=== PATIENT | male | born 1995 | race Asian ===

== ENCOUNTER 2024-06-01 08:46 | Outpatient (AMB) | payer OTHER, SELFPAY ==
--- NOTE | 2024-06-01 08:54 | MHC.PC.OV ---
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 He has a hx of htn and obstructive sleep apnea and states that he was dx with htn 2018. He states that he never followed up on the sleep apnea but was treated with lisinopril for htn and that was effective. He has been off of meds now for 3-4 years. He does complain today of increased urination x 3 months. He states when it started he was worried that he had diabetes or a uti. He states that he went to urgent care to make sure no signs of a uti or dm. He denies any polydipsia. He denies any dysuria, abnormal penile discharge, fever, chills, abdominal pain or flank pain. He states he does have a family history of diabetes and that is his main concern. He states that he does eat a lot of carbohydrates and more than he probably should. He does not have to urinate during the night. He does not drink much caffeine. He states that he does not drink carbonated beverages. Blood pressure today in the office is 136/88. He has a cuff at home but has not been checking it. He still snores at night. 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 1. Little interest or pleasure in doing things: not at all 2. Feeling down, depressed, or hopeless: not at all 3. Trouble falling or staying asleep, or sleeping too much: not at all 4. Feeling tired or having little energy: several days 5. Poor appetite or overeating: not at all 6. Feeling bad about yourself - or that you are a failure or have let yourself or your family down: not at all 7. Trouble concentrating on things, such as reading the newspaper or watching television: not at all 8. Moving or speaking so slowly that other people could have noticed. Or the opposite - being so fidgety or restless that you have been moving around a lot more than usual: not at all 9. Thoughts that you would be better off or of hurting yourself in some way: not at all Total score: 1 Depression Screening Interpretation: Negative Depression Screening Done: Yes 68379 - PHQ-9 Billing: Yes Source: Developed by Drs. Donn Purdy, Kristina Alonso, Rebel Burrell and colleagues, with an educational yulissa from [employer]. Thrive Questionnaire Date Thrive assessed: 06/01/24 I am a: Patient What is your living situation today?: I have a steady place to live Within the past 12 months, did the food you bought not last and you didn't have the money to get more?: Never true Within the past 12 months, did you worry whether your food would run out before you got money to buy more?: Never true Do you have trouble paying for medicines?: No Do you have trouble getting transportation to medical appointments?: No Do you have trouble paying your heating and electricity bill?: No Do you have trouble taking care of your child, family member or friend?: No Do you have trouble with day-to-day activities such as bathing, preparing meals, shopping, managing finances, etc.?: No Are you currently unemployed and looking for a job?: No Are you interested in more education?: No Please select the resources that you would like help with: None Currently or been in a relationship where the following occur: No concerns reported THRIVE Score: 0 AUDIT C Alcohol Use Questionnaire (AUDIT-C) 1. How often do you have a drink containing alcohol?: Monthly or less 2. How many drinks containing alcohol do you have on a typical day when you are drinking?: 1 or 2 3. How often do you have six or more drinks on one occasion?: Never Total Score: 1 Score Reviewed/Action Taken: Yes JESUS ALBERTO-7 AMB Questionnaire JESUS ALBERTO-7 Date JESUS ALBERTO - 7 assessed: 06/01/24 Feeling nervous, anxious, or on edge: 1 = Several days Not being able to stop or control worryin = Several days Worrying too much about different things: 0 = Not at all Trouble relaxin = Several days Being so restless that it is hard to sit still: 0 = Not at all Becoming easily annoyed or irritable: 0 = Not at all Feeling afraid as if something awful might happen: 0 = Not at all Total JESUS ALBERTO-7 score (0-4 normal; 5-9 mild; 10-14 moderate; 15-21 severe): 3 Source: Developed by Drs. Donn Purdy, Kristina Alonso, Rebel Burrell and colleagues, with an educational yulissa from [employer]. JESUS ALBERTO-7 Assessment Billing JESUS ALBERTO-7 Assessment Tool: JESUS ALBERTO-7 Assessment 32940 Physical exam (Primary Care) Vital Signs: Last Vital Signs Temp 98.4 F 06/01/24 09:08 Pulse 81 06/01/24 09:08 Resp 16 06/01/24 09:08 BP 136/88 06/01/24 09:08 Pulse Ox 96 06/01/24 09:08 Oxygen Delivery Method Room Air 06/01/24 09:08 BMI result Body Mass Index 35.7 Tobacco/Smoking Status: Tobacco use Status Tobacco use date assessed 06/01/24 06/01/24 08:57 Patient Tobacco Use Status Never used Tobacco 06/01/24 09:11 e-Cigarette/Vaping Use Never Used 06/01/24 09:11 PHQ-9: PHQ-9 Score PHQ-9: Total score 1 06/01/24 09:42 Depression Screening Interpretation: Negative Thrive Assessment: Date of Thrive Assessment Date Thrive assessed 06/01/24 06/01/24 09:15 Currently or been in a relationship where the following occur: No concerns reported Const Orientation/consciousness: patient oriented x3 HENMA Ears: hearing grossly normal bilaterally Neck Thyroid: Thyroid normal Lymphatic: no lymphadenopathy noted Resp Auscultation: clear to auscultation bilaterally Cardio Rate: regular rate Rhythm: regular rhythm Heart sounds: S1 normal heart sound present and S2 normal heart sound present GI Inspection: Yes normal to inspection Palpation (GI): Soft to palpation and Other GI palpation findings present (nontender, no cva tenderness) Auscultation: normoactive bowel sounds Rectal Exam - Male: Yes deferred Skin General skin exam: no rashes or lesions noted Neuro General: patient oriented x3, gait normal and no focal motor deficits Assessment and Plan Assessment & Plan (1) Polyuria: Code(s): R35.89 - Other polyuria Plan: Labs ordered today. Urine ordered. We will follow up pending test results. (2) HTN (hypertension): Code(s): I10 - Essential (primary) hypertension Qualifiers: Hypertension type: unspecified Qualified Code(s): I10 - Essential (primary) hypertension Plan: We will recheck blood pressure at follow up in 1 month. Blood pressure is borderline today. He is going to keep track of this at home as he does have a cuff. We did discuss that untreated sleep apnea can also cause hypertension. (3) Sleep apnea: Code(s): G47.30 - Sleep apnea, unspecified Qualifiers: Sleep apnea type: obstructive Qualified Code(s): G47.33 - Obstructive sleep apnea (adult) (pediatric) Plan: Unsure of when his sleep study was. He states that it was around the time of 2018. Reordered this today. Referral to sleep Medicine. I have strongly encouraged weight loss. (4) No immunization history record: Code(s): Z78.9 - Other specified health status Plan: titers ordered Orders: Orders Complete Blood Count Auto Diff Today G47.30 - Sleep apnea, unspecified, I10 - Essential (primary) hypertension, R35.89 - Other polyuria Hemoglobin A1c Today G47.30 - Sleep apnea, unspecified, I10 - Essential (primary) hypertension, R35.89 - Other polyuria UA CC w/rflx Micro + Cult Today G47.30 - Sleep apnea, unspecified, I10 - Essential (primary) hypertension, R35.89 - Other polyuria RT home sleep study Today G47.30 - Sleep apnea, unspecified, I10 - Essential (primary) hypertension Hepatitis B Surface Antigen Today Z78.9 - Other specified health status Comprehensive [place]. Panel Fast Today G47.30 - Sleep apnea, unspecified, I10 - Essential (primary) hypertension, R35.89 - Other polyuria PSA, Ultra Sensitive Today G47.30 - Sleep apnea, unspecified, I10 - Essential (primary) hypertension, R06.09 - Other forms of dyspnea, R35.89 - Other polyuria TSH reflex Free T4 Today G47.30 - Sleep apnea, unspecified, I10 - Essential (primary) hypertension, R35.89 - Other polyuria Lipid Panel Today I10 - Essential (primary) hypertension MMR IgG Measles Mumps Rubella Today Z28.39 - Other underimmunization status, Z78.9 - Other specified health status Referrals Sleep Medicine Referral G47.33 - Obstructive sleep apnea (adult) (pediatric) Coding Level of Care Code New Pt Level 4 (88050) Complex EM visit Add On G2211 Diagnoses Polyuria R35.89 Hypertension, unspecified type I10 Hypertension type: unspecified Obstructive sleep apnea syndrome G47.33 Sleep apnea type: obstructive No immunization history record Z78.9 Additional Codes JESUS ALBERTO-7 Assessment Billing - JESUS ALBERTO-7 Assessment Tool: JESUS ALBERTO-7 Assessment 33216 ([id number])
[2024-06-01 09:08] VITALS: BP 136/88; PULSE 81; RESP 16; TEMP 36.9; O2SAT 96; BMI 35.7
== END 2024-06-01 09:57 | disposition home or self-care (01) ==
PROVIDERS: PCP Physician Assistant; Visit Provider Physician Assistant
DX: R35.89 Other polyuria (principal); I10 Essential (primary) hypertension; G47.33 Obstructive sleep apnea (adult) (pediatric); Z78.9 Other specified health status
CPT/HCPCS: 99204; G2211

== ENCOUNTER 2024-06-06 10:12 | Outpatient (REF) | payer OTHER, SELFPAY ==
[2024-06-06 10:30] LABS: MANUAL DIFF FLAG NO
[2024-06-06 11:36] LABS: Basophils Absolute Auto 0.1 X10*3/uL (0.0-0.2); Basophils Percent Auto 0.7 % (0-2); Eosinophils Absolute Auto 0.3 X10*3/uL (0.0-0.4); Eosinophils Percent Auto 2.8 % (0-4); Hematocrit 49.5 % (42.0-52.0); Hemoglobin 16.4 g/dl (14.0-18.0); Imm Gran Abs Auto 0.05 X10*3/uL (0.00-0.03); Imm Gran Pct Auto 0.6 % (0.0-0.4); Lymphocytes Absolute Auto 2.8 X10*3/uL (1.2-4.9); Lymphocytes Percent Auto 31.9 % (20-40); Mean Corpuscular HGB Conc 33.1 g/dl (31.0-36.0); Mean Corpuscular Volume 84.6 fL (80.0-98.0); Mean Platelet Volume 11.9 fL (9.4-12.4); Monocytes Absolute Auto 0.5 X10*3/uL (0.1-1.2); Monocytes Percent Auto 5.7 % (2-11); Neutrophils Absolute Auto 5.2 x10*3/uL (2.0-8.3); Neutrophils Percent Auto 58.3 % (45-73); Platelet Count 197 X10*3/uL (160-400); Red Blood Count 5.85 X10*6/uL (4.60-5.80); Red Cell Distribution Width 13.4 % (11.0-16.0); White Blood Count 8.9 X10*3/uL (4.8-10.8)
[2024-06-06 11:44] LABS: Estimated Average Glucose 120 mg/dL; Hemoglobin A1c % 5.8 % (<6.0)
[2024-06-06 12:20] LABS: Hepatitis B Surface Antigen Negative (Negative)
[2024-06-06 12:32] LABS: Alanine Aminotransferase 60 U/L (0-40); Albumin Level 4.9 g/dL (3.5-5.0); Alkaline Phosphatase 78 U/L (39-117); Anion Gap 16 (12-20); Aspartate Amino Transferase 32 U/L (5-37); Bilirubin Total 0.7 mg/dL (0.0-1.0); Blood Urea Nitrogen 11 mg/dL (9-16); Carbon Dioxide 23 mmol/L (22-29); Chloride 105 mmol/L (96-108); Cholesterol 169 mg/dL (<200); Estimated Glomerular Filt Rate > 60; Glucose Fasting 101 mg/dL (60-99); HDL Cholesterol 43 mg/dL (>40); LDL Cholesterol Calculated 96 mg/dL (<100); Potassium 3.9 mmol/L (3.3-5.1); Sodium 140 mmol/L (135-145); Total Protein 8.3 g/dL (6.5-8.0); Triglycerides 151 mg/dL (<150)
[2024-06-06 12:38] LABS: TSH reflex Free T4 0.92 uIU/mL (0.32-4.0)
[2024-06-06 13:21] LABS: Appearance Urine Clear; Color Urine Yellow; Glucose Urine UA Negative (Negative); Leukocyte Esterase Urine Negative (Negative); Nitrite Urine Negative (Negative); UMIC TRIGGER UACC YES; Urine Blood Negative (Negative); Urine Ketones Negative (Negative); Urine Protein 30 (1+) mg/dL (Neg-Trace)
[2024-06-06 13:29] LABS: Bacteria Urine None Seen (None Seen); Hyaline Casts Urine 0-2 /LPF (0-2); RBC Urine 0-2 /HPF (0-2); Squamous Epithelial Cell Urine 0-2 /HPF (0-2); WBC Urine 0-5 /HPF (0-5)
[2024-06-07 09:23] LABS: Rubella IgG Antibody 5.99 Index
[2024-06-12 17:54] LABS: PSA, Ultra Sensitive 0.58 ng/mL
== END 2024-06-06 10:13 | disposition home or self-care (01) ==
LOC: HO.LAB 10:12
PROVIDERS: PCP Physician Assistant; Visit Provider Physician Assistant
DX: R35.89 Other polyuria (principal); I10 Essential (primary) hypertension; G47.30 Sleep apnea, unspecified; Z28.39 Other underimmunization status; Z78.9 Other specified health status; R06.09 Other forms of dyspnea; Z12.5 Encounter for screening for malignant neoplasm of prostate; Z13.1 Encounter for screening for diabetes mellitus
CPT/HCPCS: 36415; 80053; 80061; 81001; 81003; 83036; 84153; 84443; 85025; 86735; 86762; 86765; 87340

== ENCOUNTER 2024-07-11 09:49 | Outpatient (REF) | payer OTHER, SELFPAY ==
[2024-07-11 10:42] LABS: MANUAL DIFF FLAG NO
[2024-07-11 11:13] LABS: Basophils Percent Auto 0.4 % (0-2); Eosinophils Absolute Auto 0.2 X10*3/uL (0.0-0.4); Hematocrit 48.5 % (42.0-52.0); Imm Gran Abs Auto 0.06 X10*3/uL (0.00-0.03); Imm Gran Pct Auto 0.7 % (0.0-0.4); Lymphocytes Absolute Auto 2.8 X10*3/uL (1.2-4.9); Lymphocytes Percent Auto 33.9 % (20-40); Mean Corpuscular Hemoglobin 28.1 pg (27.0-33.0); Mean Corpuscular Volume 85.2 fL (80.0-98.0); Mean Platelet Volume 11.4 fL (9.4-12.4); Monocytes Absolute Auto 0.5 X10*3/uL (0.1-1.2); Monocytes Percent Auto 5.8 % (2-11); Neutrophils Absolute Auto 4.7 x10*3/uL (2.0-8.3); Neutrophils Percent Auto 57.2 % (45-73); Platelet Count 314 X10*3/uL (160-400); Red Blood Count 5.69 X10*6/uL (4.60-5.80); Red Cell Distribution Width 13.1 % (11.0-16.0); White Blood Count 8.2 X10*3/uL (4.8-10.8)
[2024-07-11 11:27] LABS: Appearance Urine Clear; Color Urine Yellow; Glucose Urine UA Negative (Negative); Leukocyte Esterase Urine Negative (Negative); Nitrite Urine Negative (Negative); PH 6.5 (5.0-9.0); Urine Blood Negative (Negative); Urine Ketones Negative (Negative); Urine Protein Negative (Neg-Trace)
[2024-07-11 11:39] LABS: Alanine Aminotransferase 55 U/L (0-40); Albumin Level 4.8 g/dL (3.5-5.0); Alkaline Phosphatase 84 U/L (39-117); Aspartate Amino Transferase 27 U/L (5-37); Bilirubin Direct 0.2 mg/dL (0.0-0.5); Bilirubin Total 0.7 mg/dL (0.0-1.0); Gamma Glutamyl Transpeptidase 72 U/L (11-51); Total Protein 7.9 g/dL (6.5-8.0)
== END 2024-07-11 09:50 | disposition home or self-care (01) ==
LOC: HO.LAB 09:49
PROVIDERS: PCP Physician Assistant; Visit Provider Physician Assistant
DX: R79.89 Other specified abnormal findings of blood chemistry (principal); R73.03 Prediabetes; R35.89 Other polyuria; I10 Essential (primary) hypertension; G47.30 Sleep apnea, unspecified
CPT/HCPCS: 36415; 80076; 81003; 82977; 85025

== ENCOUNTER 2024-07-14 08:24 | Outpatient (AMB) | payer OTHER, SELFPAY ==
--- NOTE | 2024-07-14 08:28 | A.OFFPC_ITS ---
Vital Signs 07/14/24 08:29 Height 6 ft 0.48 in Weight 272 lb 2 oz BMI 36.4 BP 124/88 Blood Pressure Location Lt brachial Position Sitting Respiration 16 Pulse 90 Pulse Source Pulse Oximeter Pulse Oximetry (%) 96 Oxygen Delivery Method Room Air Intake Visit Reasons: bp check Intake Note: Follow up htn. Student Ministry Pastor Required: No Allergies Penicillins Allergy (Unknown, Verified 07/14/24 08:28) Unknown Medication List - Last Reconciled 07/14/24 by Zainab Reddy PA-C No Known Home Meds Tobacco use date assessed: 06/01/24 Dental Screening Dental Screen Date: 06/01/24 HPI bp check HPI Details Patient is a 28-year-old male with a significant past medical history of elevated blood pressure readings, prediabetes, elevated LFTs presenting today for a follow up. He was seen recently to establish care was noted to have an elevated blood pressure reading. He had had this in the past but had not been seen in quite some time. At that visit I also ordered him a sleep study and a referral to sleep Medicine as he had a history of sleep apnea but never got a CPAP machine. His sleep study is booked 07/19. He did get labs which did show slightly elevated LFTs and does endorse a diet high in fats and processed foods. States that his family eats a lot of processed foods because it is just easier to cook. His grandparents like to [place] a lot of food as well. Since our last visit he has not really been working on many diet changes. He states he stopped eating cereal in the morning and switch to oatmeal but other than that has not really made any changes. We did review that his last labs also came back with his A1c at 5.8. Does report that he eats a lot of carbohydrates and pastries. He does not think he wants to see a electromyographic technician. 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 Donn Purdy, Kristina Alnoso, Rebel Burrell and colleagues, with an educational yulissa from [employer]. Physical exam (Primary Care) Vital Signs: Last Vital Signs Pulse 90 07/14/24 08:29 Resp 16 07/14/24 08:29 BP 124/88 07/14/24 08:29 Pulse Ox 96 07/14/24 08:29 Oxygen Delivery Method Room Air 07/14/24 08:29 BMI result Body Mass Index 36.4 Tobacco/Smoking Status: Tobacco use Status Tobacco use date assessed 06/01/24 07/14/24 08:32 Patient Tobacco Use Status Never used Tobacco 07/14/24 08:32 e-Cigarette/Vaping Use Never Used 07/14/24 08:32 Thrive Assessment: Date of Thrive Assessment Date Thrive assessed 06/01/24 07/14/24 08:32 Const Orientation/consciousness: patient oriented x3 HENMT Ears: hearing grossly normal bilaterally Neck Thyroid: Thyroid normal Lymphatic: no lymphadenopathy noted Resp Auscultation: clear to auscultation bilaterally Cardio Rate: regular rate Rhythm: regular rhythm Heart sounds: S1 normal heart sound present and S2 normal heart sound present GI Inspection: Yes normal to inspection Palpation (GI): Soft to palpation and Other GI palpation findings present (nontender, no cva tenderness) Auscultation: normoactive bowel sounds Rectal Exam - Male: Yes deferred Skin General skin exam: no rashes or lesions noted Neuro General: patient oriented x3, gait normal and no focal motor deficits Results Reviewed Results Reviewed: Laboratory Tests 06/06/24 07/11/24 10:29 10:41 WBC 8.2 RBC 5.69 Hgb 16.0 Hct 48.5 Plt Count 314 D Total Bilirubin 0.7 Direct Bilirubin 0.2 GGT 72 H AST 27 ALT 55 H Alkaline Phosphatase 84 Total Protein 7.9 Albumin 4.8 Cholesterol 169 PSA Ultra-Sensitive 0.58 TSH 0.92 Assessment and Plan Assessment & Plan (1) Elevated LFTs: Code(s): R79.89 - Other specified abnormal findings of blood chemistry Plan: We discussed a low-fat diet. Ultrasound was ordered. We will recheck labs in a few months. (2) Prediabetes: Code(s): R73.03 - Prediabetes Plan: As above. Advised to reduce carbohydrate and sugar intake. I have encouraged exercise. Offered referral to electromyographic technician but he declines. (3) Prehypertension: Code(s): R03.0 - Elevated blood-pressure reading, without diagnosis of hypertension Plan: He will monitor blood pressures at home and return in a few months for a follow up. He will bring his cuff in to that appointment to check. Coding Level of Care Code Est Pt Level 4 (87712) Complex EM visit Add On G2211 Diagnoses Elevated LFTs R79.89 Prediabetes R73.03 Prehypertension R03.0
[2024-07-14 08:29] VITALS: BP 124/88; PULSE 90; RESP 16; O2SAT 96; BMI 36.4
== END 2024-07-14 09:00 | disposition home or self-care (01) ==
PROVIDERS: PCP Physician Assistant; Visit Provider Physician Assistant
DX: R79.89 Other specified abnormal findings of blood chemistry (principal); R73.03 Prediabetes; R03.0 Elevated blood-pressure reading, without diagnosis of hypertension
CPT/HCPCS: 99214; G2211

== ENCOUNTER 2024-07-18 10:28 | Outpatient (REF) | payer OTHER, SELFPAY ==
--- NOTE | ~2024-07-18 | US_ITS ---
EXAMINATION: US ABDOMEN COMPLETE CLINICAL INFORMATION: Abnormal results of liver function studies. COMPARISON: None available. TECHNIQUE: Real-time imaging of the abdominal viscera. FINDINGS: PANCREAS: Normal. ABDOMINAL AORTA: The proximal, mid, and distal segments are normal in caliber. INFERIOR VENA CAVA: Visualized portions are normal. LIVER: Hepatomegaly, 19.5 cm. Increased hepatic parenchymal heterogeneity and echogenicity could be associated with hepatocellular disease/hepatic steatosis and substantially limits visualization. Correlation with liver function tests and clinical exam recommended to determine further management. GALLBLADDER: Normal. The gallbladder is physiologically distended without evidence of stones, sludge, polyps, wall thickening or pericholecystic fluid. COMMON BILE DUCT: Poorly visualized, imaged portion possibly measuring 0.4 cm in diameter. RIGHT KIDNEY: No hydronephrosis. No renal calculi. Limited visualization. The kidney measures 12.9 cm in maximum dimension. LEFT KIDNEY: No hydronephrosis. No renal calculi. Limited visualization. The kidney measures 12.9 cm in maximum dimension. SPLEEN: Normal. The spleen measures 11.8 cm in maximum dimension. FREE FLUID: None. US/US abdomen complete IMPRESSION: Hepatomegaly, 19.5 cm. Increased hepatic parenchymal heterogeneity and echogenicity could be associated with hepatocellular disease/hepatic steatosis and substantially limits visualization. Correlation with liver function tests and clinical exam recommended to determine further management. Electronically signed by: Casie Gill MD 08/03/2024 01:17 PM EDT
== END 2024-07-18 10:29 | disposition home or self-care (01) ==
LOC: HO.US 10:28
PROVIDERS: PCP Physician Assistant; Visit Provider Physician Assistant
DX: R94.5 Abnormal results of liver function studies (principal)
CPT/HCPCS: 76700

== ENCOUNTER → 2024-07-19 08:00 | Outpatient (REF) | payer OTHER, SELFPAY | LOC: HO.SL 08:00 | PROVIDERS: PCP Physician Assistant; Visit Provider Physician Assistant | DX: G47.30 Sleep apnea, unspecified (principal); I10 Essential (primary) hypertension | CPT/HCPCS: 95806 ==

== ENCOUNTER → 2024-07-20 08:21 | Outpatient (BNV) | payer OTHER, SELFPAY | PROVIDERS: PCP Physician Assistant; Visit Provider Internal Medicine | DX: G47.33 Obstructive sleep apnea (adult) (pediatric) (principal) | CPT/HCPCS: 95806 ==

== ENCOUNTER 2024-10-19 08:19 | Outpatient (AMB) | payer OTHER, SELFPAY ==
--- NOTE | 2024-10-19 08:30 | A.OFFPC_ITS ---
Vital Signs 10/19/24 08:31 Height 6 ft 0.48 in Weight 280 lb BMI 37.5 BP 124/86 Blood Pressure Location Lt brachial Position Sitting Pulse 81 Pulse Source Pulse Oximeter Pulse Oximetry (%) 96 Oxygen Delivery Method Room Air Intake Visit Reasons: bp check Intake Note: Blood pressure follow up . Allergies Penicillins Allergy (Unknown, Verified 10/19/24 08:30) Unknown Medication List - Last Reconciled 10/19/24 by Zainab Reddy PA-C No Known Home Meds Tobacco use date assessed: 06/01/24 Dental Screening Dental Screen Date: 06/01/24 HPI bp check HPI Details Patient is a 28-year-old male with a significant past medical history of elevated blood pressure readings, prediabetes, elevated LFTs, obstructive sleep apnea presenting today for a follow up. Pulm: Seeing sleep medicine in Nov for GOMEZ. He was seen recently to establish care was noted to have an elevated blood pressure reading therefore sleep study was ordered. He does have sleep apnea. We did discuss the benefits of weight loss and he states that he knows he needs to work a little bit more on diet. GI: He did get labs which did show slightly elevated LFTs and does endorse a diet high in fats and processed foods. States that his family eats a lot of processed foods because it is just easier to cook. He is trying to make some dietary changes. Endo: his last A1c at 5.8. No polyuria or polydipsia. Does report that he eats a lot of carbohydrates and pastries. 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 Derm: He does report a raised, hyperpigmented lesion on his right medial eyelid that has been there for quite some time and seems like it is maybe grown in size. He would like to see Dermatology. He also suffers from hyperhidrosis and states that he would like to see them to see about treating this as he has tried [id number] medications without improvement. He states his palms get very sweaty.. 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 1. Little interest or pleasure in doing things: not at all 2. Feeling down, depressed, or hopeless: not at all 3. Trouble falling or staying asleep, or sleeping too much: not at all 5. Poor appetite or overeating: not at all 7. Trouble concentrating on things, such as reading the newspaper or watching television: not at all 8. Moving or speaking so slowly that other people could have noticed. Or the opposite - being so fidgety or restless that you have been moving around a lot more than usual: not at all 9. Thoughts that you would be better off or of hurting yourself in some way: not at all Source: Developed by Drs. Donn Purdy, Kristina Alonso, Rebel Burrell and colleagues, with an educational yulissa from [employer]. Thrive Questionnaire Date Thrive assessed: 10/16/24 I am a: Patient What is your living situation today?: I have a steady place to live Within the past 12 months, did the food you bought not last and you didn't have the money to get more?: Never true Within the past 12 months, did you worry whether your food would run out before you got money to buy more?: Never true Do you have trouble paying for medicines?: No Do you have trouble getting transportation to medical appointments?: No Do you have trouble paying your heating and electricity bill?: No Do you have trouble taking care of your child, family member or friend?: I choose not to answer this question Do you have trouble with day-to-day activities such as bathing, preparing meals, shopping, managing finances, etc.?: No Are you currently unemployed and looking for a job?: No Are you interested in more education?: Yes Please select the resources that you would like help with: None Currently or been in a relationship where the following occur: No concerns reported THRIVE Score: 0 AUDIT C Alcohol Use Questionnaire (AUDIT-C) 1. How often do you have a drink containing alcohol?: Monthly or less 2. How many drinks containing alcohol do you have on a typical day when you are drinking?: 1 or 2 3. How often do you have six or more drinks on one occasion?: Never Total Score: 1 JESUS ALBERTO-7 AMB Questionnaire JESUS ALBERTO-7 Date JESUS ALBERTO - 7 assessed: 10/19/24 Feeling nervous, anxious, or on edge: 1 = Several days Not being able to stop or control worryin = Not at all Worrying too much about different things: 0 = Not at all Trouble relaxin = Not at all Being so restless that it is hard to sit still: 0 = Not at all Becoming easily annoyed or irritable: 0 = Not at all Feeling afraid as if something awful might happen: 0 = Not at all Total JESUS ALBERTO-7 score (0-4 normal; 5-9 mild; 10-14 moderate; 15-21 severe): 1 Source: Developed by Drs. Donn Purdy, Kristina Alonso, Rebel Burrell and colleagues, with an educational yulissa from [employer]. JESUS ALBERTO-7 Assessment Billing JESUS ALBERTO-7 Assessment Tool: JESUS ALBERTO-7 Assessment 17157 Physical exam (Primary Care) Vital Signs: Last Vital Signs Pulse 81 10/19/24 08:31 BP 124/86 10/19/24 08:31 Pulse Ox 96 10/19/24 08:31 Oxygen Delivery Method Room Air 10/19/24 08:31 BMI result Body Mass Index 37.5 Tobacco/Smoking Status: Tobacco use Status Tobacco use date assessed 06/01/24 10/19/24 08:35 Patient Tobacco Use Status Never used Tobacco 10/19/24 08:35 e-Cigarette/Vaping Use Never Used 10/19/24 08:35 Thrive Assessment: Date of Thrive Assessment Date Thrive assessed 10/16/24 10/19/24 08:35 Currently or been in a relationship where the following occur: No concerns reported Const Orientation/consciousness: patient oriented x3 HENMT Ears: hearing grossly normal bilaterally Neck Thyroid: Thyroid normal Lymphatic: no lymphadenopathy noted Resp Auscultation: clear to auscultation bilaterally Cardio Rate: regular rate Rhythm: regular rhythm Heart sounds: S1 normal heart sound present and S2 normal heart sound present GI Inspection: Yes normal to inspection Palpation (GI): Soft to palpation and Other GI palpation findings present (nontender, no cva tenderness) Auscultation: normoactive bowel sounds Rectal Exam - Male: Yes deferred Skin Other: There is a raised, hyperpigmented, 3 mm x 3 mm lesion noted on the right medial upper eyelid Neuro General: patient oriented x3, gait normal and no focal motor deficits Results Reviewed Results Reviewed: IMPRESSION: Hepatomegaly, 19.5 cm. Increased hepatic parenchymal heterogeneity and echogenicity could be associated with hepatocellular disease/hepatic steatosis and substantially limits visualization. Correlation with liver function tests and clinical exam recommended to determine further management. Laboratory Tests 06/06/24 07/11/24 10:29 10:41 Sodium 140 Potassium 3.9 Chloride 105 Carbon Dioxide 23 Anion Gap 16 Creatinine 0.80 Estimated GFR > 60 Hemoglobin A1c % 5.8 Calcium 10.0 GGT 72 H AST 27 ALT 55 H Alkaline Phosphatase 84 Total Protein 7.9 Triglycerides 151 H LDL Cholesterol, Calc 96 HDL Cholesterol 43 PSA Ultra-Sensitive 0.58 TSH 0.92 Coding Level of Care Code Est Pt Level 4 (22499) Complex EM visit Add On G2211 Diagnoses Elevated LFTs R79.89 Prediabetes R73.03 Prehypertension R03.0 Additional Codes JESUS ALBERTO-7 Assessment Billing - JESUS ALBERTO-7 Assessment Tool: JESUS ALBERTO-7 Assessment 52470 ([id number]) Assessment & Plan Assessment & Plan (1) Elevated LFTs: Code(s): R79.89 - Other specified abnormal findings of blood chemistry Category: Medical Plan: We reviewed the labs and ultrasound of the liver. He will be seeing GI in November. (2) Prediabetes: Code(s): R73.03 - Prediabetes Category: Medical Plan: We will monitor the A1c. Discussed the importance of cutting back on carbohy drates and sugar. (3) Prehypertension: Code(s): R03.0 - Elevated blood-pressure reading, without diagnosis of hypertension Category: Medical Plan: We will continue to monitor. We will follow up after he sees sleep medicine to be reassessed. Plan Referral to derm today. Orders: Orders Hemoglobin A1c Today R03.0 - Elevated blood-pressure reading, without diagnosis of hypertension, R73.03 - Prediabetes, R79.89 - Other specified abnormal findings of blood chemistry Referrals Dermatology Referral L98.9 - Disorder of the skin and subcutaneous tissue, unspecified, R61 - Generalized hyperhidrosis
[2024-10-19 08:31] VITALS: BP 124/86; PULSE 81; O2SAT 96; BMI 37.5
== END 2024-10-19 08:55 | disposition home or self-care (01) ==
PROVIDERS: PCP Physician Assistant; Visit Provider Physician Assistant
DX: R79.89 Other specified abnormal findings of blood chemistry (principal); R73.03 Prediabetes; R03.0 Elevated blood-pressure reading, without diagnosis of hypertension

== ENCOUNTER → 2024-10-19 08:19 | Outpatient (BNVA) | payer OTHER, SELFPAY | PROVIDERS: PCP Physician Assistant; Visit Provider Physician Assistant | DX: R79.89 Other specified abnormal findings of blood chemistry (principal); R73.03 Prediabetes; R03.0 Elevated blood-pressure reading, without diagnosis of hypertension; L98.9 Disorder of the skin and subcutaneous tissue, unspecified; R61 Generalized hyperhidrosis | CPT/HCPCS: 96127 ==

== ENCOUNTER 2024-10-19 09:03 | Outpatient (REF) | payer OTHER, SELFPAY ==
[2024-10-19 11:47] LABS: Estimated Average Glucose 131 mg/dL; Hemoglobin A1C 174.6788 umol/L; Hemoglobin A1c % 6.2 % (<6.0)
== END 2024-10-19 09:04 | disposition home or self-care (01) ==
LOC: HO.WFDLDS 09:03
PROVIDERS: Visit Provider Physician Assistant
DX: R73.03 Prediabetes (principal); R03.0 Elevated blood-pressure reading, without diagnosis of hypertension; R79.89 Other specified abnormal findings of blood chemistry
CPT/HCPCS: 36415; 83036

== ENCOUNTER 2024-12-13 08:32 | Outpatient (AMB) | payer OTHER, SELFPAY ==
--- NOTE | 2024-12-13 08:40 | A.OFFVIS_ITS ---
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 HST 07/2024 Severe GOMEZ DORIS 52.4 / OAI 47.6 / Nocturnal Hypoxemia O2 desaturation to 88% for 13min. Start APAP - on 6-20cm H20 His PCP sent him for a sleep evaluation based on constant daily fatigue. 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 He denies grinding his teeth at night, and is sluggish to wake up, it take him about 1-2 hours to wake up. He starts sleeping on his side then ends up in supine position. He denies memory issues, forgetfulness, he does multi-task and notices he is easily distracted. He denies anxiety, depression, or mood fluctuations. He denies any parasomnias, sleep talking/ walking, and abnormal movements at night. BP is 140/100, he used to be on Lisinopril however discontinued since he was able to control his BP with diet and exercise. BMI 37 he is trying to lose weight. 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 Current occupational exposures/hazards: No Cognitive needs: No Hearing needs: No Vision needs: Yes (glasses) Review of Systems Const All systems reviewed & are unremarkable except as noted in HPI and below Physical Exam Vital Signs: Last Vital Signs Pulse 93 12/13/24 08:44 BP 140/100 H 12/13/24 08:44 Pulse Ox 96 12/13/24 08:44 Oxygen Delivery Method Room Air 12/13/24 08:44 BMI result Body Mass Index 37.1 Const General: cooperative, comfortable and no acute distress Nutritional Appearance: average body habitus and overweight (BMI is 37) Orientation/consciousness: patient oriented x3 HEENT Face and sinus: Yes normal facial exam and Yes face symmetric Throat: Yes other ([place] score of 3) Eyes Pupils: Equal, round and reactive pupils present Neck Neck: Yes full ROM and Yes supple Resp Effort & Inspection: normal respiratory effort and able to speak in complete sentences Neuro General: patient oriented x3 and moves all extremities Cranial nerves: Yes CN's II-XII intact bilaterally, Yes Facial sensation intact/muscles of mastication intact, Yes Equal, round and reactive pupils present, Yes Normal accommodation reflex present, Yes Bilaterally intact EOM present, Yes Nystagmus not present, Yes Normal facial strength present, Yes Midline tongue present, Yes Ability to bilaterally rotate head present and Yes Ability to bilaterally elevate shoulders present Cognition (Neuro): normal cognition Gait exam (Neuro): Normal gait present Motor exam (neuro): 5/5 motor strength present throughout, Pronator motor function not present, no tremor noted and Normal motor muscle tone present throughout Deep tendon reflexes (DTR's): Right triceps reflex intensity grade: 2+, Left triceps reflex intensity grade: 2+, Rt Biceps (C5, C6): 2+, Left biceps reflex intensity grade: 2+, Right brachioradialis reflex intensity grade: 2+, Left brachioradialis reflex intensity grade: 2+, Right patellar reflex intensity grade: 2+ and Left patellar reflex intensity grade: 2+ Results Reviewed Results Reviewed: Labs: CBC/ CMP / TSH normal HgA1c 6.2 BP/ HTN GGT 72/ ALT H Triglycerides 151 Assessment & Plan Assessment & Plan (1) Fatigue due to sleep pattern disturbance: Code(s): R53.83 - Other fatigue; G47.9 - Sleep disorder, unspecified Category: Medical Plan GOMEZ very severe: Start CPAP / Auto Pap on [id number], will titrate for hypoxemia once stabilized on CPAP Patient Education: Sleep Hygiene, regular sleep time, dark and cool environment enhances sleep. Red light in the bedroom maybe helpful. No devices in bed. Limit fluids 2-4 hours prior to bed. HTN #1 Modifiable RF for Cardiovascular events. Migraines will monitor for intensity/frequency and f/u. Fatigue: Labs: B12/ Folate/ MMA/ Vit D 3 mos f/u Orders: Orders Vitamin D 25-OH Total Today G47.9 - Sleep disorder, unspecified, R53.83 - Other fatigue Vitamin B12 and Folate Today G47.9 - Sleep disorder, unspecified, R53.83 - Other fatigue Methylmalonic Acid Today G47.9 - Sleep disorder, unspecified, R53.83 - Other fatigue Homocysteine Today G47.9 - Sleep disorder, unspecified, R53.83 - Other fatigue Coding Level of Care Code New Pt Level 4 (30518) Diagnoses Fatigue due to sleep pattern disturbance R53.83; G47.9 Time Spent (min) 30 Sleep Questionnaire Difficulty falling asleep: No Difficulty staying asleep?: No Number of arousals: 1 Snoring: Yes Witnessed apneas: Yes Gasping arousals: No Nocturia: No GERD: No Vivid dreams: No Acting out dreams: No Abnormal behavior in sleep: No Abnormal movements in sleep: Yes (Right foot pins and needles, seconds) Morning headaches: Yes (Occipital haedache pressure ) Excessive daytime sleepiness: Yes Daytime naps: Yes (1-2 x week 15min to 30min) Restless legs: Yes (shakes his legs ) Hallucinations: No Sleep paralysis: No Drop attacks: No Sleep Study: Yes CPAP: No
[2024-12-13 08:44] VITALS: BP 140/100; PULSE 93; O2SAT 96; BMI 37.1
== END 2024-12-13 09:17 | disposition home or self-care (01) ==
PROVIDERS: PCP Physician Assistant; Visit Provider Physician Assistant Medical
DX: R53.83 Other fatigue (principal); G47.9 Sleep disorder, unspecified
CPT/HCPCS: 99204

== ENCOUNTER 2024-12-19 08:30 | Outpatient (REF) | payer OTHER, SELFPAY ==
[2024-12-19 09:49] LABS: Estimated Average Glucose 134 mg/dL; Hemoglobin A1C 177.4262 umol/L; Hemoglobin A1c % 6.3 % (<6.0); Total Hemoglobin (HGBA1C) 3959.6119 umol/L
[2024-12-19 10:12] LABS: Alanine Aminotransferase 87 U/L (0-40); Albumin Level 4.8 g/dL (3.5-5.0); Alkaline Phosphatase 91 U/L (39-117); Aspartate Amino Transferase 46 U/L (5-37); Bilirubin Direct 0.2 mg/dL (0.0-0.5); Bilirubin Total 0.4 mg/dL (0.0-1.0); Cholesterol 162 mg/dL (<200); HDL Cholesterol 35 mg/dL (>40); LDL Cholesterol Calculated 108 mg/dL (<100); Triglycerides 96 mg/dL (<150)
[2024-12-19 10:25] LABS: HBS Num1 3.39 mIU/mL (0-7.99); HBc Num1 0.06 S/CO (0.00-0.79); HBsAGNum1 0.39 S/CO (0.00-0.99); Hepatitis A Antibody IgM 0.14 Index (0-0.79); Hepatitis B Core Antibody Nonreactive (Nonreactive); Hepatitis B Surface Antigen Negative (Negative); ~HepC Num1 0.06 S/CO (0.00-0.79); ~Hepatitis A Antibody IgM Nonreactive (Nonreactive); ~Hepatitis B Surface Antibody NONREACTIVE (Nonreactive); ~Hepatitis C Antibody Nonreactive (Nonreactive)
[2024-12-19 10:32] LABS: Vitamin D 25-OH Total 12.9 ng/mL (>30)
[2024-12-19 10:38] LABS: Folate 5.9 ng/mL (> or = 4.0); Vitamin B12 572 pg/mL (200-900)
[2024-12-20 18:33] LABS: Homocysteine 8.6 umol/L (<11.4)
[2024-12-23 05:13] LABS: Methylmalonic Acid 228 nmol/L (55-335)
[2024-12-26 17:00] LABS: FIB-ALT 63 U/L (9-46); FIB-Alpha-2-Macroglobulin 151 mg/dL (106-279); FIB-Apolipoprotein A1 127 mg/dL (94-176); FIB-GGT 75 U/L (3-70); FIB-Haptoglobin 198 mg/dL (43-212); FIB-Total Bilirubin 0.4 mg/dL (0.2-1.2); Liver Fibrosis Stage F0; Nec Inflam Act Grade A1; Nec Inflam Act Score 0.31; Reference ID 5315421
== END 2024-12-19 08:31 | disposition home or self-care (01) ==
LOC: HO.LAB 08:30
PROVIDERS: Physician Assistant Medical; PCP Physician Assistant; Visit Provider Nurse Practitioner Family
DX: K76.0 Fatty (change of) liver, not elsewhere classified (principal); R53.83 Other fatigue; G47.9 Sleep disorder, unspecified; R74.01 Elevation of levels of liver transaminase levels; R79.89 Other specified abnormal findings of blood chemistry; Z83.3 Family history of diabetes mellitus; I25.10 Atherosclerotic heart disease of native coronary artery without angina pectoris
CPT/HCPCS: 36415; 80061; 80076; 81596; 82306; 82607; 82746; 83036; 83090; 83921; 86704; 86706; 86709; 86803; 87340

== ENCOUNTER 2024-12-19 08:30 | Outpatient (AMB) | payer OTHER, SELFPAY ==
[2024-12-19 08:32] VITALS: BP 152/96; PULSE 96; O2SAT 96; BMI 38.0
--- NOTE | 2024-12-19 08:32 | A.OFFVIS_ITS ---
Vital Signs 12/19/24 08:32 Height 6 ft Weight 280 lb 6.848 oz BMI 38.0 BP 152/96 H Blood Pressure Location Rt brachial Position Sitting Pulse 96 Pulse Source Pulse Oximeter Pulse Oximetry (%) 96 Oxygen Delivery Method Room Air Intake Visit Reasons: Abnormal find. Blood Chemistry, Fatty Liver Intake Note: ESTABLISHED PATIENT Reason; Abn labs. Most recently drawn within last 2 mos. Changes/concerns? No significant GI concerns per pt. Medical Front Desk Specialist Required: No Allergies Penicillins Allergy (Unknown, Verified 12/19/24 08:33) Unknown HPI HPI Abnormal find. Blood Chemistry, Fatty Liver: Details: 29-year-old male with past medical history of sleep apnea, hypertension is here today for initial consultation. Patient was sent by his PCP. Elevated liver enzymes and hepatomegaly seen on ultrasound. Patient denies drinking alcohol on daily basis maybe couple times a month. Denies any family history of liver disease. Admits to gaining with in the past few years. 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 Patient reports that he does eat food that is fried. Mostly home cooked. Patient reports that she has grandparents usually cook. Patient denies any abdominal pain or discomfort. 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 Current occupational exposures/hazards: No Cognitive needs: No Hearing needs: No Vision needs: Yes (glasses) Review of Systems Const Denies weight gain and Denies weight loss ENT Reports no additional complaints, Denies dysphagia and Denies odynophagia Card Reports no additional complaints Resp Reports no additional complaints GI Denies abdominal pain, Denies belching, Denies melena, Denies bloating, Denies change in bowel habits, Denies dysphagia, Denies excessive flatus, Denies dyspepsia, Denies heartburn, Denies diarrhea, Denies loose stools, Denies nausea, Denies odynophagia and Denies vomiting Reports no additional complaints Musc Reports no additional complaints Neuro Reports no additional complaints Psych Reports no additional complaints Endo Reports no additional complaints Physical Exam Vital Signs: BMI result Body Mass Index 38.0 Const General: healthy appearing and no acute distress Nutritional Appearance: obese Orientation/consciousness: patient oriented x3 Resp Effort & Inspection: normal respiratory effort, able to speak in complete sentences, no tracheal deviation and symmetric chest movement Auscultation: clear to auscultation bilaterally Cardio Rate: regular rate GI Inspection: Yes normal to inspection, No distended and Yes obesity Palpation (GI): Soft to palpation, not firm, nontender and No hepatosplenomegaly present Auscultation: normal bowel sounds General: Yes no CVA tenderness Back/Spine/Pelvis Back: no CVA tenderness Skin General skin exam: elasticity normal, turgor normal and dry skin Neuro General: patient oriented x3 Psych Appearance: grossly normal Mental Status: mental status grossly normal Results Reviewed Results Reviewed: ABDOMINAL ULTRASOUND FINDINGS: PANCREAS: Normal. ABDOMINAL AORTA: The proximal, mid, and distal segments are normal in caliber. INFERIOR VENA CAVA: Visualized portions are normal. LIVER: Hepatomegaly, 19.5 cm. Increased hepatic parenchymal heterogeneity and echogenicity could be associated with hepatocellular disease/hepatic steatosis and substantially limits visualization. Correlation with liver function tests and clinical exam recommended to determine further management. GALLBLADDER: Normal. The gallbladder is physiologically distended without evidence of stones, sludge, polyps, wall thickening or pericholecystic fluid. COMMON BILE DUCT: Poorly visualized, imaged portion possibly measuring 0.4 cm in diameter. RIGHT KIDNEY: No hydronephrosis. No renal calculi. Limited visualization. The kidney measures 12.9 cm in maximum dimension. LEFT KIDNEY: No hydronephrosis. No renal calculi. Limited visualization. The kidney measures 12.9 cm in maximum dimension. SPLEEN: Normal. The spleen measures 11.8 cm in maximum dimension. FREE FLUID: None. US/US abdomen complete IMPRESSION: Hepatomegaly, 19.5 cm. Increased hepatic parenchymal heterogeneity and echogenicity could be associated with hepatocellular disease/hepatic steatosis and substantially limits visualization. Correlation with liver function tests and clinical exam recommended to determine further management. Laboratory Tests 06/06/24 07/11/24 10:29 10:41 ALT 60 H 55 H Assessment & Plan Assessment & Plan (1) Elevated LFTs: Code(s): R79.89 - Other specified abnormal findings of blood chemistry Category: Medical (2) Hepatomegaly: Code(s): R16.0 - Hepatomegaly, not elsewhere classified Category: Medical Plan Discussed with patient the importance of losing weight, diet and exercise. Low- fat, low-salt, low carb and high-protein diet. Will repeat liver enzymes, check A1c. History of diabetes in his family and last A1c 6.2 % in September. Ultrasound of the liver with elastography. Follow-up in 6 months. Patient will call us if he will have any GI concerning symptoms. He is agreeable to this plan and verbalizes understanding of instructions. He was given the opportunity to ask questions and all questions answered. Thank you for allowing me to participate in his care Orders: Orders Liver Fibrosis Pnl Today K76.0 - Fatty (change of) liver, not elsewhere classified Liver Panel Today R74.01 - Elevation of levels of liver transaminase levels Hemoglobin A1c Today Z83.3 - Family history of diabetes mellitus Hepatitis A,B,C Profile Today R79.89 - Other specified abnormal findings of blood chemistry US abdomen hayden w elastography Today K76.0 - Fatty (change of) liver, not elsewhere classified Lipid Panel Today I25.10 - Atherosclerotic heart disease of [place] coronary artery without angina pectoris Coding Level of Care Code New Pt Level 3 (35612) Diagnoses Elevated LFTs R79.89 Hepatomegaly R16.0 Time Spent (min) 40 Comment 30 minutes spent with patient and additional 10 minutes spent
== END 2024-12-19 11:17 | disposition home or self-care (01) ==
PROVIDERS: PCP Physician Assistant; Visit Provider Nurse Practitioner Family
DX: R79.89 Other specified abnormal findings of blood chemistry (principal); R16.0 Hepatomegaly, not elsewhere classified
CPT/HCPCS: 99203

== ENCOUNTER 2025-01-19 08:14 | Outpatient (REF) | payer OTHER, SELFPAY ==
--- NOTE | ~2025-01-19 | US_ITS ---
EXAMINATION: US ABDOMEN LIMITED WITH LIVER ELASTOGRAPHY CLINICAL INFORMATION: Fatty change of liver, not elsewhere specified. COMPARISON: 07/18/2024. No prior elastography. TECHNIQUE: Real-time imaging of the abdominal viscera. Noninvasive ultrasound liver fibrosis assessment is performed using Vahid ElastPQ point quantification shear wave elastography (pSWE) with a 5 MHz transducer. Multiple elastography samples are obtained. FINDINGS: PANCREAS: The visualized pancreatic head and body are normal in appearance. The remainder of the pancreas is obscured from visualization by the overlying bowel gas. LIVER: Liver is mildly enlarged with diffusely increased and coarsened echogenicity. This likely represents a mix of fatty infiltration with associated hepatocellular disease. There is normal hepatic contour. There is focal fatty sparing abutting the gallbladder fossa. There is a minimally complex probable cyst measuring 8 x 7 x 8 mm in the left hepatic lobe with good through transmission and no color Doppler flow. There is no intra or extrahepatic biliary dilatation. The right lobe measures 17.8 cm in length. The left lobe measures 12.6 cm in length. Portal flow is hepatopedal. Shear wave liver elastography median stiffness is 1.76 m/s (reference: normal median stiffness is 1.3 m/s or less). IQR/median stiffness to assess sampling precision is 0.07 (reference: good quality data set is IQR/median stiffness of 0.15 or less). GALLBLADDER: The gallbladder is physiologically distended without evidence of stones, sludge, polyps, wall thickening or pericholecystic fluid. Negative sonographic Rosado's sign. COMMON BILE DUCT: Normal in caliber measuring 0.3 cm in diameter. RIGHT KIDNEY: No hydronephrosis. No renal calculi or focal parenchymal lesions. The kidney measures 11.7 cm in maximum dimension. FREE FLUID: None. US/US abdomen hayden w elastography IMPRESSION: 1. Mild hepatomegaly with diffusely coarsened and increased hepatic echotexture/echogenicity, findings most likely representing a mixture of fatty infiltration and underlying hepatocellular disease. There is a mildly complex appearing 8 mm cyst in the left hepatic lobe. This does not appear suspicious. 2. Liver elastography: Measurements are suggestive of compensated advanced chronic liver disease but need further test for confirmation. This is a quality data set. 3. Normal gallbladder, bile ducts, and right kidney. REFERENCE: Society of Radiologists in Ultrasound Liver Stiffness Thresholds (2020): LIVER STIFFNESS THRESHOLDS: *Liver Stiffness equal or less than 1.3 m/s: High probability of being normal. *Liver Stiffness less than 1.7 m/s: In the absence of other known clinical signs, rules out compensated advanced chronic liver disease. *Liver Stiffness 1.7-2.1 m/s: Suggestive of compensated advanced chronic liver disease but need further test for confirmation. *Liver Stiffness over 2.1 m/s: Rules in compensated advanced chronic liver disease. *Liver Stiffness over 2.4 m/s: Suggestive of clinically significant portal hypertension. QUALITY OF DATA SET: *IQR/Median value equal or less than 0.15 implies a quality data set. *IQR/Median value over 0.15 implies a poor quality data set. SIGNIFICANT CHANGE FROM PRIOR EXAM: Significant change if liver stiffness measurement is 10% or greater from prior exam. OTHER CONSIDERATIONS: The stage of liver fibrosis may be overestimated in the setting of acute hepatitis, liver inflammation, elevated liver function tests, hepatic vascular congestion, obstructive cholestasis, non-fasting state, and infiltrative diseases such as amyloidosis and lymphoma. In some patients with NAFLD, the liver stiffness thresholds for compensated advanced chronic liver disease may be lower. In causes other than viral hepatitis and NAFLD, liver stiffness thresholds are not well established. Electronically signed by: Wiley Hodges MD 01/19/2025 09:33 AM [facility] [place]
== END 2025-01-19 08:15 | disposition home or self-care (01) ==
LOC: HO.US 08:14
PROVIDERS: PCP Physician Assistant; Visit Provider Nurse Practitioner Family
DX: K76.0 Fatty (change of) liver, not elsewhere classified (principal)
CPT/HCPCS: 76705; 76981

== ENCOUNTER → 2025-01-19 08:16 | Outpatient (BNV) | payer OTHER, SELFPAY | PROVIDERS: PCP Physician Assistant; Visit Provider Radiology Diagnostic Radiology | DX: K76.0 Fatty (change of) liver, not elsewhere classified (principal) | CPT/HCPCS: 76705 ==

== ENCOUNTER 2025-02-22 08:26 | Outpatient (AMB) | payer OTHER, SELFPAY ==
--- NOTE | 2025-02-22 08:37 | MHC.PC.OV ---
Vital Signs 02/22/25 08:41 Height 6 ft 0.48 in Weight 283 lb 2 oz BMI 37.9 BP 128/84 Blood Pressure Location Rt brachial Position Sitting Respiration 14 Pulse 86 Pulse Source Pulse Oximeter Pulse Oximetry (%) 96 Oxygen Delivery Method Room Air Intake Visit Reasons: Follow Up bp Intake Note: Follow up. Had a sleep study, and now on CPAP. International Account Manager Required: No Allergies Penicillins Allergy (Unknown, Verified 02/22/25 08:40) Unknown Medication List - Last Reconciled 02/22/25 by Zainab Reddy PA-C cholecalciferol (vitamin D3) 50 mcg PO DAILY 90 days Tobacco use date assessed: 06/01/24 Dental Screening Dental Screen Date: 06/01/24 HPI Follow Up bp HPI Details Patient is a 29-year-old male with a significant past medical history of elevated blood pressure readings, prediabetes, elevated LFTs, obstructive sleep apnea presenting today for a follow up. Pulm: Recently seen and treated for sleep apnea CV: Blood pressure today in the office is 128/84. It was recently higher prior to treating his sleep apnea. However, he has yet lost any weight GI: He did get labs which did show elevated LFTs and does endorse a diet high in fats and processed foods. States that his family eats a lot of processed foods because it is just easier to cook. He is trying to make some dietary changes. he did follow with GI. He did have a liver ultrasound which was consistent with hepatomegaly, coarse appearance of the liver and a complex liver cyst which did not appear to be concerning. He did review this with GI in the recommendation is weight loss and controlling his blood sugars. Endo: He is a prediabetic and his A1c has increased from 5.8-6.3.. No polyuria or polydipsia. Does report that he eats a lot of carbohydrates and pastries. He was offered a media production support manager initially however states today that he thinks he would be ready to see a media production support manager. His diet in the morning is oatmeal, ramen noodles for lunch and then states that he eats a heavier dinner. He does not eat much protein. He is not very physically active. 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 1. Little interest or pleasure in doing things: not at all 2. Feeling down, depressed, or hopeless: not at all 3. Trouble falling or staying asleep, or sleeping too much: not at all 4. Feeling tired or having little energy: not at all 5. Poor appetite or overeating: not at all 6. Feeling bad about yourself - or that you are a failure or have let yourself or your family down: not at all 7. Trouble concentrating on things, such as reading the newspaper or watching television: not at all 8. Moving or speaking so slowly that other people could have noticed. Or the opposite - being so fidgety or restless that you have been moving around a lot more than usual: not at all 9. Thoughts that you would be better off or of hurting yourself in some way: not at all Total score: 0 Depression Screening Interpretation: Negative Depression Screening Done: Yes 07105 - PHQ-9 Billing: Yes Source: Developed by Drs. Donn Purdy, Kristina Alonso, Rebel Burrell and colleagues, with an educational yulissa from [employer]. Thrive Questionnaire Date Thrive assessed: 02/18/25 I am a: Patient What is your living situation today?: I have a steady place to live Within the past 12 months, did the food you bought not last and you didn't have the money to get more?: Never true Within the past 12 months, did you worry whether your food would run out before you got money to buy more?: Never true Do you have trouble paying for medicines?: No Do you have trouble getting transportation to medical appointments?: No Do you have trouble paying your heating and electricity bill?: No Do you have trouble taking care of your child, family member or friend?: No Do you have trouble with day-to-day activities such as bathing, preparing meals, shopping, managing finances, etc.?: No Are you currently unemployed and looking for a job?: No Are you interested in more education?: Yes Please select the resources that you would like help with: None Currently or been in a relationship where the following occur: No concerns reported THRIVE Score: 0 AUDIT C Alcohol Use Questionnaire (AUDIT-C) 1. How often do you have a drink containing alcohol?: 2-4 times a month 2. How many drinks containing alcohol do you have on a typical day when you are drinking?: 1 or 2 3. How often do you have six or more drinks on one occasion?: Never Total Score: 2 Score Reviewed/Action Taken: Yes JESUS ALBERTO-7 AMB Questionnaire JESUS ALBERTO-7 Date JESUS ALBERTO - 7 assessed: 10/19/24 Feeling nervous, anxious, or on edge: 0 = Not at all Not being able to stop or control worryin = Several days Worrying too much about different things: 1 = Several days Trouble relaxin = Not at all Being so restless that it is hard to sit still: 0 = Not at all Becoming easily annoyed or irritable: 0 = Not at all Feeling afraid as if something awful might happen: 0 = Not at all Total JESUS ALBERTO-7 score (0-4 normal; 5-9 mild; 10-14 moderate; 15-21 severe): 2 Source: Developed by Drs. Donn Purdy, Kristina Alonso, Rebel Burrell and colleagues, with an educational yulissa from [employer]. JESUS ALBERTO-7 Assessment Billing JESUS ALBERTO-7 Assessment Tool: JESUS ALBERTO-7 Assessment 71838 Physical exam (Primary Care) Vital Signs: Last Vital Signs Pulse 86 02/22/25 08:41 Resp 14 02/22/25 08:41 BP 128/84 02/22/25 08:41 Pulse Ox 96 02/22/25 08:41 Oxygen Delivery Method Room Air 02/22/25 08:41 BMI result Body Mass Index 37.9 Tobacco/Smoking Status: Tobacco use Status Tobacco use date assessed 06/01/24 02/22/25 08:39 Patient Tobacco Use Status Never used Tobacco 02/22/25 08:39 e-Cigarette/Vaping Use Never Used 02/22/25 08:39 PHQ-9: PHQ-9 Score PHQ-9: Total score 0 02/22/25 08:47 Depression Screening Interpretation: Negative Thrive Assessment: Date of Thrive Assessment Date Thrive assessed 02/18/25 02/22/25 08:39 Currently or been in a relationship where the following occur: No concerns reported Const Orientation/consciousness: patient oriented x3 HENMT Ears: hearing grossly normal bilaterally Neck Thyroid: Thyroid normal Lymphatic: no lymphadenopathy noted Resp Auscultation: clear to auscultation bilaterally Cardio Rate: regular rate Rhythm: regular rhythm Heart sounds: S1 normal heart sound present and S2 normal heart sound present GI Inspection: Yes normal to inspection Palpation (GI): Soft to palpation and Other GI palpation findings present (nontender, no cva tenderness) Auscultation: normoactive bowel sounds Rectal Exam - Male: Yes deferred Skin General skin exam: no rashes or lesions noted Neuro General: patient oriented x3, gait normal and no focal motor deficits Results Reviewed Results Reviewed: Laboratory Tests 07/11/24 12/19/24 10:41 09:26 WBC 8.2 RBC 5.69 Hgb 16.0 Hct 48.5 Plt Count 314 D Estimat Average Glucose 134 Hemoglobin A1c % 6.3 H Total Bilirubin 0.4 Direct Bilirubin 0.2 AST 46 H ALT 87 H Alkaline Phosphatase 91 Liver GGT 75 H Liver Total Bilirubin 0.4 Liver Apolipoprotein A1 127 Liver Fibrosis ALT 63 H Liver c-7-Ddalinpoemmoi 151 Liver Haptoglobin 198 Liver Fibrosis Score 0.10 Total Protein 8.0 Albumin 4.8 Triglycerides 96 Cholesterol 162 LDL Cholesterol, Calc 108 H HDL Cholesterol 35 L Vitamin B12 572 Methylmalonic Acid 228 25-OH Vitamin D Total 12.9 L Folate 5.9 Homocysteine 8.6 Hepatitis A IgM Ab Nonreactive Hep Bs Antigen Negative Hep Bs Antibody NONREACTIVE Hep B Core Total Ab Nonreactive Hepatitis C Ab (EIA) Nonreactive US/US abdomen hayden w elastography IMPRESSION: 1. Mild hepatomegaly with diffusely coarsened and increased hepatic echotexture/echogenicity, findings most likely representing a mixture of fatty infiltration and underlying hepatocellular disease. There is a mildly complex appearing 8 mm cyst in the left hepatic lobe. This does not appear suspicious. Coding Level of Care Code Est Pt Level 5 (94240) Complex EM visit Add On G2211 Diagnoses Prediabetes R73.03 Elevated LFTs R79.89 Obstructive sleep apnea syndrome G47.33 Sleep apnea type: obstructive Hypertension, unspecified type I10 Hypertension type: unspecified Additional Codes JESUS ALBERTO-7 Assessment Billing - JESUS ALBERTO-7 Assessment Tool: JESUS ALBERTO-7 Assessment 58575 ([id number]) PHQ-9 - 03725 - PHQ-9 Billing: Yes ([id number]) Assessment & Plan Assessment & Plan (1) Prediabetes: Code(s): R73.03 - Prediabetes Category: Medical Plan: We will recheck labs. Discussed starting metformin however he wants to hold off on this and wants to hold off on a GLP 1. I have referred him to a media production support manager. We discussed that his diet is high in carbohydrates and processed foods and that he needs to increase his protein rich foods, fruits, vegetables and increased physical activity. We spent 45 minutes in [id number] time today discussing diet, discussing how to read a nutrition label and portion sizes. We also discussed signs and symptoms of diabetes, different medications used to treat diabetes in the pathophysiology of type 2 diabetes. (2) Elevated LFTs: Code(s): R79.89 - Other specified abnormal findings of blood chemistry Category: Medical Plan: Reviewed notes from GI with patient and discussed the importance of reducing his carbohydrate and sugar intake. We also discussed that he needs to lower his A1c. (3) Sleep apnea: Code(s): G47.30 - Sleep apnea, unspecified Category: Medical Qualifiers: Sleep apnea type: obstructive Qualified Code(s): G47.33 - Obstructive sleep apnea (adult) (pediatric) Plan: Currently being treated and feels better. (4) HTN (hypertension): Code(s): I10 - Essential (primary) hypertension Category: Medical Qualifiers: Hypertension type: unspecified Qualified Code(s): I10 - Essential (primary) hypertension Plan: Better today but borderline. We will continue to monitor. Orders: Orders Complete Blood Count Auto Diff Today G47.33 - Obstructive sleep apnea (adult) (pediatric), I10 - Essential (primary) hypertension, R16.0 - Hepatomegaly, not elsewhere classified, R73.03 - Prediabetes, R79.89 - Other specified abnormal findings of blood chemistry TSH reflex Free T4 Today G47.33 - Obstructive sleep apnea (adult) (pediatric), I10 - Essential (primary) hypertension, R16.0 - Hepatomegaly, not elsewhere classified, R73.03 - Prediabetes, R79.89 - Other specified abnormal findings of blood chemistry Comprehensive [place]. Panel Fast Today G47.33 - Obstructive sleep apnea (adult) (pediatric), I10 - Essential (primary) hypertension, R16.0 - Hepatomegaly, not elsewhere classified, R73.03 - Prediabetes, R79.89 - Other specified abnormal findings of blood chemistry Hemoglobin A1c Today G47.33 - Obstructive sleep apnea (adult) (pediatric), I10 - Essential (primary) hypertension, R16.0 - Hepatomegaly, not elsewhere classified, R73.01 - Impaired fasting glucose, R73.03 - Prediabetes, R79.89 - Other specified abnormal findings of blood chemistry Lipid Panel Today G47.33 - Obstructive sleep apnea (adult) (pediatric), I10 - Essential (primary) hypertension, R16.0 - Hepatomegaly, not elsewhere classified, R73.03 - Prediabetes, R79.89 - Other specified abnormal findings of blood chemistry Referrals Tub Attendant Nutrition Referral G47.33 - Obstructive sleep apnea (adult) (pediatric), I10 - Essential (primary) hypertension, R73.03 - Prediabetes, R79.89 - Other specified abnormal findings of blood chemistry
[2025-02-22 08:41] VITALS: BP 128/84; PULSE 86; RESP 14; O2SAT 96; BMI 37.9
== END 2025-02-22 09:06 | disposition home or self-care (01) ==
LOC: HO.HMCFM 08:26
PROVIDERS: PCP Physician Assistant; Visit Provider Physician Assistant
DX: R73.03 Prediabetes (principal); R79.89 Other specified abnormal findings of blood chemistry; G47.33 Obstructive sleep apnea (adult) (pediatric); I10 Essential (primary) hypertension

== ENCOUNTER → 2025-02-22 08:26 | Outpatient (BNVA) | payer OTHER, SELFPAY | PROVIDERS: PCP Physician Assistant; Visit Provider Physician Assistant | DX: R73.03 Prediabetes (principal); R79.89 Other specified abnormal findings of blood chemistry; I10 Essential (primary) hypertension; G47.33 Obstructive sleep apnea (adult) (pediatric) | CPT/HCPCS: 96127 ==

== ENCOUNTER 2025-03-15 09:08 | Outpatient (AMB) | payer OTHER, SELFPAY ==
[2025-03-15 09:44] VITALS: BMI 37.3
--- NOTE | 2025-03-15 09:44 | A.OFFVIS_ITS ---
VS Expanded 03/15/25 09:44 03/28/25 12:10 Height 6 ft 1 in 6 ft 1 in Weight 282 lb 10.122 oz 283 lb BMI 37.3 37.3 Intake Visit Reasons: Prediabetes Allergies Penicillins Allergy (Unknown, Verified 03/20/25 09:11) Unknown Nutrition Presentation Details: Pt presents for MNT for PRE DM Pt has many questions regarding dietary modifications to cultural foods and questions regarding info read on the web BS Monitoring Most Recent Diabetes Results: Cholesterol 162 mg/dL (<200) 12/19/24 HDL Cholesterol 35 mg/dL (>40) L 12/19/24 Triglycerides 96 mg/dL (<150) 12/19/24 AST 46 U/L (5-37) H 12/19/24 ALT 87 U/L (0-40) H 12/19/24 Total Protein 8.0 g/dL (6.5-8.0) 12/19/24 Albumin 4.8 g/dL (3.5-5.0) 12/19/24 MBS-Ujprslh-Mh.Jeor Equation Height: 6 ft 1 in Weight: 283 lb Resting Metabolic Rate: 2308.50 Calculated Activity Level: Sedentary Calories Needed to Maintain Weight: 2770.20 Diagnosis Nutrition problem #1: excessive energy intake As related to (etiology) #1: diagnosis As evidenced by (sign/symptom) #1: knowledge deficit of diet PFSH Medical History Hepatomegaly Social History Housing: House Alcohol intake: current Comment: Socially Patient Tobacco Use Status: Never used Tobacco e-Cigarette/Vaping Use: Never Used Second Hand Smoke Exposure: Yes service: No 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 occupational status: employed 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 Current occupational exposures/hazards: No Cognitive needs: No Hearing needs: No Vision needs: Yes (glasses) Assessment & Plan Assessment & Plan (1) Prediabetes: Code(s): R73.03 - Prediabetes Category: Medical Plan: Wt: 129 Kg ( 03/17 ) Est kcal needs as per MSJ: 2800 (40% carb, 30% protein/fat) Est fluid needs as per 25-30 ml/d: 3900 Est prot per day as per 1 g/kg bw: 130 Recommend fiber intake : 8-10 g per day and gradually increase to 25-28 g per day for women and 35-38 g for men or as tolerated Recommend sodium intake per day : less than 2000 mg Educated patient on: ( R = reviewed V = verbalizes understanding N/R = needs review N/A = not applicable * Food sources of carbohydrate, adequate serving sizes and its role in various health conditions: R * Differences between complex carbohydrates a simple carbohydrates, role of fiber in diet: R V N/R * Lean protein sources of foods: R * Differences between types of fats and role in diet (mono on saturated fat fatty acids, saturated fatty acids, trans fats): R V N/R * Food sources of sodium in salt and healthy modifications for heart health in kidney health: R V R/V * Vitamins and minerals: R V N/R * Healthy plate method concept: R V * Physical activity: Benefits a precaution: R * Hypoglycemia protocol (rule of 15): R V N/R * Dietary prevention of Hyperglycemia: R Patient Instructions: Work on reducing sugars (beverages/pastries/sugars in general) Reduce total carb to 80 g per meal and 20-30 g carb per as snack Include fiber rich foods Coding Level of Care Code Nutr Indiv Intake (28523) Diagnoses Prediabetes R73.03 Time Spent (min) 30
[2025-03-28 12:10] VITALS: BMI 37.3
== END 2025-03-15 10:39 | disposition home or self-care (01) ==
LOC: HO.ENCR 09:08
PROVIDERS: PCP Physician Assistant; Visit Provider Dietitian, Registered
DX: R73.03 Prediabetes (principal)

== ENCOUNTER → 2025-03-15 09:08 | Outpatient (BNVA) | payer OTHER, SELFPAY | PROVIDERS: PCP Physician Assistant; Visit Provider Dietitian, Registered | DX: R73.03 Prediabetes (principal); Z71.3 Dietary counseling and surveillance | CPT/HCPCS: 97802 ==

== ENCOUNTER 2025-03-20 09:00 | Outpatient (AMB) | payer OTHER, SELFPAY ==
--- NOTE | 2025-03-20 09:08 | MHC.OFFVIS ---
Vital Signs 03/20/25 09:11 Height 6 ft 1 in Weight 281 lb BMI 37.1 BP 140/92 H Blood Pressure Location Rt brachial Position Sitting Pulse 96 Pulse Source Pulse Oximeter Pulse Oximetry (%) 97 Oxygen Delivery Method Room Air Intake Visit Reasons: 3 mnts f/u appt Intake Note: Patient presents follow up Sleep. Labs/Compliance in chart Allergies Penicillins Allergy (Unknown, Verified 03/20/25 09:11) Unknown HPI Comments Details: 29 year old male presents for sleep evaluation per PCP, Elenita Reddy. HST 07/2024 Severe GOMEZ DORIS 52.4 / OAI 47.6 / Nocturnal Hypoxemia O2 desaturation to 88% for 13min. Start APAP - on 6-20cm H20 His PCP sent him for a sleep evaluation based on constant daily fatigue. 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 He denies grinding his teeth at night, and is not so sluggish to wake up, but still needs a few minutes to get out of bed. He starts sleeping on his side then ends up in supine position. He denies memory issues, forgetfulness, he does multi-task and notices he is easily distracted. He denies depression, or mood fluctuations, but has mild anxiety. He denies any parasomnias, sleep talking/ walking, abnormal movements at night, and RLS. BP is elevated 140/92, he used to be on Lisinopril 5 years ago however discontinued since he was able to control his BP with lifestyle management along with diet and exercise. Will defer to PCP. BMI is elevated at 37 he is trying to lose weight. He has a familial genetic disposition with liver fibrois and complete work up shows Fibrosis at 0. He washes his mask daily, rinses hoses as needed, changes filters and water from machine. 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 Current occupational exposures/hazards: No Cognitive needs: No Hearing needs: No Vision needs: Yes (glasses) Physical Exam Vital Signs: Last Vital Signs Pulse 96 03/20/25 09:11 Pulse Ox 97 03/20/25 09:11 Oxygen Delivery Method Room Air 03/20/25 09:11 BMI result Body Mass Index 37.1 Const General: cooperative, comfortable and no acute distress Nutritional Appearance: average body habitus and overweight (BMI is 37) Orientation/consciousness: patient oriented x3 HEENT Face and sinus: Yes normal facial exam and Yes face symmetric Throat: Yes other ([place] score of 3) Eyes Pupils: Equal, round and reactive pupils present Neck Neck: Yes full ROM and Yes supple Resp Effort & Inspection: normal respiratory effort and able to speak in complete sentences Neuro General: patient oriented x3 and moves all extremities Cranial nerves: Yes CN's II-XII intact bilaterally, Yes Facial sensation intact/muscles of mastication intact, Yes Equal, round and reactive pupils present, Yes Normal accommodation reflex present, Yes Bilaterally intact EOM present, Yes Nystagmus not present, Yes Normal facial strength present, Yes Midline tongue present, Yes Ability to bilaterally rotate head present and Yes Ability to bilaterally elevate shoulders present Cognition (Neuro): normal cognition Gait exam (Neuro): Normal gait present Motor exam (neuro): 5/5 motor strength present throughout, Pronator motor function not present, no tremor noted and Normal motor muscle tone present throughout Deep tendon reflexes (DTR's): Right triceps reflex intensity grade: 2+, Left triceps reflex intensity grade: 2+, Rt Biceps (C5, C6): 2+, Left biceps reflex intensity grade: 2+, Right brachioradialis reflex intensity grade: 2+, Left brachioradialis reflex intensity grade: 2+, Right patellar reflex intensity grade: 2+ and Left patellar reflex intensity grade: 2+ Results Reviewed Results Reviewed: GOMEZ Compliance Report 12/14/2024- 03/13/2025 >4hours 54days and 60% avg use total days 3hrs 58min Press [id number] therapy at 13.5 - 19.4cmH20 Leaks /min 15.0 - Max 60.6cmH20 AHI 2.9 Assessment & Plan Assessment & Plan (1) Fatigue due to sleep pattern disturbance: Code(s): R53.83 - Other fatigue; G47.9 - Sleep disorder, unspecified Category: Medical (2) Low vitamin D level: Code(s): R79.89 - Other specified abnormal findings of blood chemistry Category: Medical (3) HTN (hypertension): Code(s): I10 - Essential (primary) hypertension Category: Medical Qualifiers: Hypertension type: unspecified Qualified Code(s): I10 - Essential (primary) hypertension Plan Fatigue due to sleep apnea continue cpap Low vit D levels continue taking Vitamin D daily HTN BP is 140/92, patient education provided today re: pathophysiology hypertension and comorbidities associated with HTN. Patient Instructions: Patient Education: Use CPAP therapy as directed accordingly for a minimum of 4-6 hours per night. Each sleep cycle is 90 min. N1, N2, N3 and REM, thus cycling through these 4 phases reaching REM allows the Hypothalamus signalling to the Pituitary gland to release GNRH, GHRH, TSH, CRH etc. for growth tissue repair, mood and immunity. If you experience any difficulties with your machine reach out to your cpap provider, and or [facility] for replacements, adjustments of masks, or pressure settings. Download the [employer] Trader leatha to monitor your own sleep cycle nightly. Write down your questions and lets discuss them. Wash the mask daily,replace hoses, change filters, fill your reservoir with distilled water as needed. Coding Level of Care Code Est Pt Level 4 (42726) Diagnoses Fatigue due to sleep pattern disturbance R53.83; G47.9 Low vitamin D level R79.89 Hypertension, unspecified type I10 Hypertension type: unspecified Time Spent (min) 30
[2025-03-20 09:11] VITALS: BP 140/92; PULSE 96; O2SAT 97; BMI 37.1
== END 2025-03-20 10:02 | disposition home or self-care (01) ==
LOC: HO.HSMS 09:00
PROVIDERS: PCP Physician Assistant; Visit Provider Physician Assistant Medical
DX: R53.83 Other fatigue (principal); G47.9 Sleep disorder, unspecified; R79.89 Other specified abnormal findings of blood chemistry; I10 Essential (primary) hypertension
CPT/HCPCS: 99214

== ENCOUNTER → 2025-03-20 09:00 | Outpatient (BNVA) | payer OTHER, SELFPAY | PROVIDERS: PCP Physician Assistant; Visit Provider Physician Assistant Medical ==

== ENCOUNTER 2025-04-24 10:12 | Outpatient (AMB) | payer OTHER, SELFPAY ==
[2025-04-24 10:14] VITALS: BMI 36.9
--- NOTE | 2025-04-24 10:14 | A.OFFVIS_ITS ---
VS Expanded 04/24/25 10:14 Height 6 ft 1 in Weight 279 lb 15.793 oz BMI 36.9 Intake Visit Reasons: Pre DM Allergies Penicillins Allergy (Unknown, Verified 03/20/25 09:11) Unknown Nutrition Presentation Details: Pt presents for MNT f/u for T2DM Pt reports gradually working n diet modifications food labels-reports understanding carbs/sugar/portions challenges: evening snacks Physical activity- contemplation stage BS Monitoring Most Recent Diabetes Results: Cholesterol 162 mg/dL (<200) 12/19/24 HDL Cholesterol 35 mg/dL (>40) L 12/19/24 Triglycerides 96 mg/dL (<150) 12/19/24 AST 46 U/L (5-37) H 12/19/24 ALT 87 U/L (0-40) H 12/19/24 Total Protein 8.0 g/dL (6.5-8.0) 12/19/24 Albumin 4.8 g/dL (3.5-5.0) 12/19/24 PFSH Medical History Hepatomegaly Social History Housing: House Alcohol intake: current Comment: Socially Patient Tobacco Use Status: Never used Tobacco e-Cigarette/Vaping Use: Never Used Second Hand Smoke Exposure: Yes service: No Current occupational status: employed 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 Current occupational exposures/hazards: No Cognitive needs: No Hearing needs: No Vision needs: Yes (glasses) Assessment & Plan Assessment & Plan (1) Prediabetes: Code(s): R73.03 - Prediabetes Category: Medical Plan: Wt: 129 Kg ( 03/17 ), 127 kg (05/17) Est kcal needs as per MSJ: 2800 (40% carb, 30% protein/fat) Est fluid needs as per 25-30 ml/d: 3900 Est prot per day as per 1 g/kg bw: 130 Recommend fiber intake : 8-10 g per day and gradually increase to 25-28 g per day for women and 35-38 g for men or as tolerated Recommend sodium intake per day : less than 2000 mg Educated patient on: ( R = reviewed V = verbalizes understanding N/R = needs review N/A = not applicable * Food sources of carbohydrate, adequate serving sizes and its role in various health conditions: R * Differences between complex carbohydrates a simple carbohydrates, role of fiber in diet: R * Lean protein sources of foods: R * Differences between types of fats and role in diet (mono on saturated fat fatty acids, saturated fatty acids, trans fats): R V N/R * Food sources of sodium in salt and healthy modifications for heart health in kidney health: R * Vitamins and minerals: R V N/R * Healthy plate method concept: R V * Physical activity: Benefits a precaution: R * Hypoglycemia protocol (rule of 15): R V N/R * Dietary prevention of Hyperglycemia: R Patient Instructions: WORK ON CHOOSING LOW SODIUM FOODS options see list of low sodium food choices choose a fruit/avocado in evening snack , working on reducing high salt/highly processed foods Coding Level of Care Code Nutr Indiv Subseq (33537) Diagnoses Prediabetes R73.03 Time Spent (min) 30
== END 2025-04-24 11:08 | disposition home or self-care (01) ==
LOC: HO.ENCR 10:14
PROVIDERS: PCP Physician Assistant; Visit Provider Dietitian, Registered
DX: R73.03 Prediabetes (principal)

== ENCOUNTER → 2025-04-24 10:12 | Outpatient (BNVA) | payer OTHER, SELFPAY | PROVIDERS: PCP Physician Assistant; Visit Provider Dietitian, Registered | DX: R73.03 Prediabetes (principal); Z71.3 Dietary counseling and surveillance | CPT/HCPCS: 97803 ==

== ENCOUNTER 2025-05-22 08:59 | Outpatient (REF) | payer OTHER, SELFPAY ==
[2025-05-22 09:17] LABS: MANUAL DIFF FLAG NO
[2025-05-22 09:54] LABS: Basophils Percent Auto 0.5 % (0-2); Eosinophils Absolute Auto 0.2 X10*3/uL (0.0-0.4); Eosinophils Percent Auto 2.6 % (0-4); Hematocrit 48.4 % (42.0-52.0); Hemoglobin 15.8 g/dl (14.0-18.0); Imm Gran Abs Auto 0.07 X10*3/uL (0.00-0.03); Imm Gran Pct Auto 0.8 % (0.0-0.4); Lymphocytes Absolute Auto 2.7 X10*3/uL (1.2-4.9); Lymphocytes Percent Auto 31.5 % (20-40); Mean Corpuscular HGB Conc 32.6 g/dl (31.0-36.0); Mean Corpuscular Hemoglobin 27.2 pg (27.0-33.0); Mean Corpuscular Volume 83.4 fL (80.0-98.0); Mean Platelet Volume 11.6 fL (9.4-12.4); Monocytes Absolute Auto 0.5 X10*3/uL (0.1-1.2); Monocytes Percent Auto 6.1 % (2-11); Neutrophils Percent Auto 58.5 % (45-73); Platelet Count 273 X10*3/uL (160-400); Red Cell Distribution Width 13.1 % (11.0-16.0); White Blood Count 8.5 X10*3/uL (4.8-10.8)
[2025-05-22 10:02] LABS: Estimated Average Glucose 140 mg/dL; Hemoglobin A1c % 6.5 % (<6.0)
[2025-05-22 10:43] LABS: HBS Num1 3.25 mIU/mL (0-7.99); ~HepC Num1 0.08 S/CO (0.00-0.79); ~Hepatitis B Surface Antibody NONREACTIVE (Nonreactive); ~Hepatitis C Antibody Nonreactive (Nonreactive)
[2025-05-22 10:57] LABS: Alanine Aminotransferase 88 U/L (0-40); Alkaline Phosphatase 97 U/L (39-117); Anion Gap 14 (12-20); Aspartate Amino Transferase 46 U/L (5-37); Bilirubin Direct 0.3 mg/dL (0.0-0.5); Bilirubin Total 0.7 mg/dL (0.0-1.0); Blood Urea Nitrogen 12 mg/dL (9-16); Calcium 9.4 mg/dL (8.4-10.2); Carbon Dioxide 24 mmol/L (22-29); Chloride 105 mmol/L (96-108); Cholesterol 175 mg/dL (<200); Estimated Glomerular Filt Rate > 60; Ferritin 241 ng/mL (20-250); Glucose Fasting 122 mg/dL (60-99); HDL Cholesterol 36 mg/dL (>40); LDL Cholesterol Calculated 103 mg/dL (<100); Potassium 3.8 mmol/L (3.3-5.1); Sodium 139 mmol/L (135-145); Total Protein 7.8 g/dL (6.5-8.0); Triglycerides 181 mg/dL (<150)
[2025-05-22 11:28] LABS: Gamma Glutamyl Transpeptidase 92 U/L (11-51)
== END 2025-05-22 09:00 | disposition home or self-care (01) ==
LOC: HO.LAB 08:59
PROVIDERS: PCP Physician Assistant; Visit Provider Physician Assistant
DX: R94.5 Abnormal results of liver function studies (principal); R73.01 Impaired fasting glucose; R16.0 Hepatomegaly, not elsewhere classified; R73.03 Prediabetes; R79.89 Other specified abnormal findings of blood chemistry; G47.33 Obstructive sleep apnea (adult) (pediatric); I10 Essential (primary) hypertension
CPT/HCPCS: 36415; 80053; 80061; 80076; 82248; 82728; 82977; 83036; 84443; 85025; 86706; 86803

== ENCOUNTER 2025-05-25 08:14 | Outpatient (AMB) | payer OTHER, SELFPAY ==
--- NOTE | 2025-05-25 08:25 | A.OFFPC_ITS ---
Vital Signs 05/25/25 08:27 05/25/25 08:34 Height 6 ft 1 in Weight 281 lb 4 oz BMI 37.1 BP 136/96 H 130/88 Blood Pressure Location Rt brachial Lt brachial Position Sitting Sitting Respiration 16 Pulse 80 Pulse Source Pulse Oximeter Temp 98.4 F Temp Source Oral Pulse Oximetry (%) 95 Oxygen Delivery Method Room Air Intake Visit Reasons: labs and med check Intake Note: Medication follow up. Lab results. Employee Relations Consultant Required: No Allergies Penicillins Allergy (Unknown, Verified 05/25/25 08:26) Unknown Medication List - Last Reconciled 05/25/25 by Zainab Reddy PA-C blood sugar diagnostic (FreeStyle Lite Strips) Use daily As directed to check blood glucose blood-glucose meter (FreeStyle Lite Meter kit) Use daily As directed to check blood sugars cholecalciferol (vitamin D3) 50 mcg PO DAILY 90 days lancets (FreeStyle Lancets) use daily as directed to check blood glucose lisinopril 10 mg PO DAILY Tobacco use date assessed: 05/25/25 Dental Screening Dental Screen Date: 05/25/25 Did you have a dental visit in the last 12 months?: No Did you have a dental problem in the last 6 months where you did not have access to dental care?: No Was dental information given to patient?: Patient has dentist (appts are booked far out) HPI labs and med check HPI Details Patient is a 29-year-old male with a significant past medical history of elevated blood pressure readings, prediabetes, elevated LFTs, obstructive sleep apnea presenting today for a follow up. Pulm: Recently seen and treated for sleep apnea CV: Blood pressure today in the office is 136/96. It was recently higher prior to treating his sleep apnea. However, he has yet lost any weight, does continue to gain weight. GI: He did get labs which did show elevated LFTs and does endorse a diet high in fats and processed foods. States that his family eats a lot of processed foods because it is just easier to cook. He is trying to make some dietary changes. he did follow with GI. He did have a liver ultrasound which was consistent with hepatomegaly, coarse appearance of the liver and a complex liver cyst which did not appear to be concerning. He did review this with GI in the recommendation is weight loss and controlling his blood sugars. Endo: He is a a newly diagnosed diabetic and his A1c has increased from 5.8- 6.5. It has increased despite him following with a classroom instructional aide. No polyuria or polydipsia. Does report that he eats a lot of carbohydrates and pastries. He was offered a classroom instructional aide initially however states today that he thinks he would be ready to see a classroom instructional aide. His diet in the morning is oatmeal, ramen noodles for lunch and then states that he eats a heavier dinner. He does not eat much protein. He is not very physically active. 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 Current occupational exposures/hazards: No Cognitive needs: No Hearing needs: No Vision needs: Yes (glasses) Questionnaire Thrive Questionnaire Date Thrive assessed: 02/18/25 I am a: Patient What is your living situation today?: I have a steady place to live Within the past 12 months, did the food you bought not last and you didn't have the money to get more?: Never true Within the past 12 months, did you worry whether your food would run out before you got money to buy more?: Never true Do you have trouble paying for medicines?: No Do you have trouble getting transportation to medical appointments?: No Do you have trouble paying your heating and electricity bill?: No Do you have trouble taking care of your child, family member or friend?: No Do you have trouble with day-to-day activities such as bathing, preparing meals, shopping, managing finances, etc.?: No Are you currently unemployed and looking for a job?: No Are you interested in more education?: Yes Please select the resources that you would like help with: None Currently or been in a relationship where the following occur: No concerns reported THRIVE Score: 0 AUDIT C Alcohol Use Questionnaire (AUDIT-C) 1. How often do you have a drink containing alcohol?: Never 3. How often do you have six or more drinks on one occasion?: Never Total Score: 0 JESUS ALBERTO-7 AMB Questionnaire JESUS ALBERTO-7 Date JESUS ALBERTO - 7 assessed: 10/19/24 Source: Developed by Drs. Donn Purdy, Kristina Alonso, Rebel Burrell and colleagues, with an educational yulissa from [employer]. Physical exam (Primary Care) Tobacco/Smoking Status: Tobacco use Status Tobacco use date assessed 06/01/24 02/22/25 08:39 Patient Tobacco Use Status Never used Tobacco 02/22/25 08:39 e-Cigarette/Vaping Use Never Used 02/22/25 08:39 Thrive Assessment: Date of Thrive Assessment Date Thrive assessed 02/18/25 03/13/25 12:14 Currently or been in a relationship where the following occur: No concerns reported Const Orientation/consciousness: patient oriented x3 HENMT Ears: hearing grossly normal bilaterally Neck Thyroid: Thyroid normal Lymphatic: no lymphadenopathy noted Resp Auscultation: clear to auscultation bilaterally Cardio Rate: regular rate Rhythm: regular rhythm Heart sounds: S1 normal heart sound present and S2 normal heart sound present GI Inspection: Yes normal to inspection Palpation (GI): Soft to palpation and Other GI palpation findings present (nontender, no cva tenderness) Auscultation: normoactive bowel sounds Rectal Exam - Male: Yes deferred Skin General skin exam: no rashes or lesions noted Neuro General: patient oriented x3, gait normal and no focal motor deficits Results Reviewed Results Reviewed: Laboratory Tests 05/22/25 09:15 WBC 8.5 RBC 5.80 Hgb 15.8 Hct 48.4 Plt Count 273 Sodium 139 Potassium 3.8 Chloride 105 Carbon Dioxide 24 Anion Gap 14 BUN 12 Creatinine 0.74 Estimated GFR > 60 Fasting Glucose 122 H Estimat Average Glucose 140 Hemoglobin A1c % 6.5 H Calcium 9.4 Ferritin 241 Total Bilirubin 0.7 Direct Bilirubin 0.3 GGT 92 H AST 46 H ALT 88 H Alkaline Phosphatase 97 Triglycerides 181 H Cholesterol 175 LDL Cholesterol, Calc 103 H HDL Cholesterol 36 L US/US abdomen hayden w elastography IMPRESSION: 1. Mild hepatomegaly with diffusely coarsened and increased hepatic echotexture/echogenicity, findings most likely representing a mixture of fatty infiltration and underlying hepatocellular disease. There is a mildly complex appearing 8 mm cyst in the left hepatic lobe. This does not appear suspicious. 2. Liver elastography: Measurements are suggestive of compensated advanced chronic liver disease but need further test for confirmation. This is a quality data set. 3. Normal gallbladder, bile ducts, and right kidney. Coding Level of Care Code Est Pt Level 5 (06844) Complex EM visit Add On G2211 Diagnoses Controlled type 2 diabetes mellitus without complication, without long-term c urrent use of insulin E11.9 Hypertension, unspecified type I10 Hypertension type: unspecified Elevated LFTs R79.89 Hepatomegaly R16.0 Obstructive sleep apnea syndrome G47.33 Sleep apnea type: obstructive Assessment & Plan Assessment & Plan (1) Controlled type 2 diabetes mellitus without complication, without long-term current use of insulin: Code(s): E11.9 - Type 2 diabetes mellitus without complications Category: Medical Plan: Approximately 45 minutes was spent today in [id number] time reviewing the pathophysiology of diabetes, the differences between type 1 and type 2 diabetes, complications associated with diabetes including but not limited to kidney disease, blindness, amputations, infections, stroke, heart attack. We reviewed signs and symptoms of hyper and hypoglycemia that would require emergent medical treatment. Reviewed with patient how to test blood sugars. Testing supplies were sent in yesterday to his pharmacy. He is going to start checking his blood sugars. Advised that he needs to work on increased physical activity as tolerated and reducing his carbohydrate and sugar intake. He is going to continue following with a classroom instructional aide. I spent significant time reviewing GLP ones and medications in general. He does not want to start Mounjaro or metformin. (2) HTN (hypertension): Code(s): I10 - Essential (primary) hypertension Category: Medical Qualifiers: Hypertension type: unspecified Qualified Code(s): I10 - Essential (primary) hypertension Plan: We will start lisinopril. Discussed risks and benefits and adverse effects of this medication. We will recheck BMP in a few weeks. He will return for a follow up to have his blood pressure rechecked at that time as well. (3) Elevated LFTs: Code(s): R79.89 - Other specified abnormal findings of blood chemistry Category: Medical Plan: Following with GI. Discussed the importance of avoiding alcohol and processed foods. Discussed that he needs to work on weight loss. (4) Hepatomegaly: Code(s): R16.0 - Hepatomegaly, not elsewhere classified Category: Medical Plan: As above (5) Sleep apnea: Code(s): G47.30 - Sleep apnea, unspecified Category: Medical Qualifiers: Sleep apnea type: obstructive Qualified Code(s): G47.33 - Obstructive sleep apnea (adult) (pediatric) Plan: Continue follow up with sleep medicine Orders: Orders MMR IgG Measles Mumps Rubella Today Z28.39 - Other underimmunization status Varicella IgG Antibody Today Z28.39 - Other underimmunization status Hepatitis B Surface Antibody Today Z28.39 - Other underimmunization status Comprehensive [place]. Panel Fast Today E11.9 - Type 2 diabetes mellitus without complications, G47.33 - Obstructive sleep apnea (adult) (pediatric), I10 - Essential (primary) hypertension, R16.0 - Hepatomegaly, not elsewhere classified, R79.89 - Other specified abnormal findings of blood chemistry Microalbumin, Random (w Creat) Today E11.9 - Type 2 diabetes mellitus without complications, G47.33 - Obstructive sleep apnea (adult) (pediatric), I10 - Essential (primary) hypertension, R16.0 - Hepatomegaly, not elsewhere classified, R79.89 - Other specified abnormal findings of blood chemistry Medications: New lisinopril 10 mg PO DAILY 90 tabs 0RF
[2025-05-25 08:27] VITALS: BP 136/96; PULSE 80; RESP 16; TEMP 36.9; O2SAT 95; BMI 37.1
[2025-05-25 08:34] VITALS: BP 130/88
== END 2025-05-25 09:05 | disposition home or self-care (01) ==
LOC: HO.HMCFM 08:15
PROVIDERS: PCP Physician Assistant; Visit Provider Physician Assistant
DX: E11.9 Type 2 diabetes mellitus without complications (principal); I10 Essential (primary) hypertension; R79.89 Other specified abnormal findings of blood chemistry; R16.0 Hepatomegaly, not elsewhere classified; G47.33 Obstructive sleep apnea (adult) (pediatric)

== ENCOUNTER 2025-06-12 08:24 | Outpatient (AMB) | payer OTHER, SELFPAY ==
--- NOTE | 2025-06-12 08:27 | A.OFFVIS_ITS ---
Vital Signs 06/12/25 08:32 Height 6 ft 1 in Weight 283 lb BMI 37.3 BP 142/78 H Blood Pressure Location Rt brachial Position Sitting Pulse 88 Pulse Source Pulse Oximeter Pulse Oximetry (%) 96 Oxygen Delivery Method Room Air Intake Visit Reasons: Transaminitis, hepatomegaly Intake Note: Est pt for mgmt of abn lab values. Labs done. CC; Pt denies any new sx or concerns at this time. Pt reviewed labs with PCP. Commissioner Of Internal Revenue Required: No Accompanied by: Self / Same As Patient Allergies Penicillins Allergy (Unknown, Verified 06/12/25 08:27) Unknown HPI HPI Transaminitis, hepatomegaly: Details: LAST VISIT: Elevated LFTs Hepatomegaly Plan Discussed with patient the importance of losing weight, diet and exercise. Low- fat, low-salt, low carb and high-protein diet. Will repeat liver enzymes, check A1c. History of diabetes in his family and last A1c 6.2 % in September. Ultrasound of the liver with elastography. Follow-up in 6 months. Patient will call us if he will have any GI concerning symptoms. He is agreeable to this plan and verbalizes understanding of instructions. He was given the opportunity to ask questions and all questions answered. ? Thank you for allowing me to participate in his care Orders Liver Fibrosis Pnl Today K76.0 Liver Panel Today R74.01 Hemoglobin A1c Today Z83.3 Hepatitis A,B,C Profile Today R79.89 US abdomen hayden w elastography Today K76.0 Lipid Panel Today I25.10 TODAY'S VISIT: Patient is here today for follow-up and to discuss ultrasound and lab results. Patient denies any GI concerning symptoms. Reports to be doing well. Patient's A1c is going up. He is seeing dietitian to help with his dietary choices. Currently he is trying to eat low-fat and low carb diet. However patient does admit that in his culture there is lot of noodles and rice. Increased liver enzymes since last visit. Patient admits that he is not exercising. His job is sitting in the front of computer for 8 hours. 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 Current occupational exposures/hazards: No Cognitive needs: No Hearing needs: No Vision needs: Yes (glasses) Review of Systems Const Denies weight gain and Denies weight loss ENT Reports no additional complaints, Denies dysphagia and Denies odynophagia Card Reports no additional complaints Resp Reports no additional complaints GI Denies abdominal pain, Denies belching, Denies melena, Denies bloating, Denies change in bowel habits, Denies dysphagia, Denies excessive flatus, Denies dyspepsia, Denies heartburn, Denies diarrhea, Denies loose stools, Denies nausea, Denies odynophagia and Denies vomiting Reports no additional complaints Musc Reports no additional complaints Neuro Reports no additional complaints Psych Reports no additional complaints Endo Reports no additional complaints Physical Exam Vital Signs: BMI result Body Mass Index 37.3 Const General: healthy appearing and no acute distress Nutritional Appearance: obese Orientation/consciousness: patient oriented x3 Resp Effort & Inspection: normal respiratory effort, able to speak in complete sentences, no tracheal deviation and symmetric chest movement Auscultation: clear to auscultation bilaterally Cardio Rate: regular rate GI Inspection: Yes normal to inspection, No distended and Yes obesity Palpation (GI): Soft to palpation, not firm, nontender and No hepatosplenomegaly present Auscultation: normal bowel sounds General: Yes no CVA tenderness Back/Spine/Pelvis Back: no CVA tenderness Skin General skin exam: elasticity normal, turgor normal and dry skin Neuro General: patient oriented x3 Psych Appearance: grossly normal Mental Status: mental status grossly normal Results Reviewed Results Reviewed: ABDOMINAL ULTRASOUND WITH LIVER ELASTOGRAPHY FINDINGS: PANCREAS: The visualized pancreatic head and body are normal in appearance. The remainder of the pancreas is obscured from visualization by the overlying bowel gas. LIVER: Liver is mildly enlarged with diffusely increased and coarsened echogenicity. This likely represents a mix of fatty infiltration with associated hepatocellular disease. There is normal hepatic contour. There is focal fatty sparing abutting the gallbladder fossa. There is a minimally complex probable cyst measuring 8 x 7 x 8 mm in the left hepatic lobe with good through transmission and no color Doppler flow. There is no intra or extrahepatic biliary dilatation. The right lobe measures 17.8 cm in length. The left lobe measures 12.6 cm in length. Portal flow is hepatopedal. Shear wave liver elastography median stiffness is 1.76 m/s (reference: normal median stiffness is 1.3 m/s or less). IQR/median stiffness to assess sampling precision is 0.07 (reference: good quality data set is IQR/median stiffness of 0.15 or less). GALLBLADDER: The gallbladder is physiologically distended without evidence of stones, sludge, polyps, wall thickening or pericholecystic fluid. Negative sonographic Rosado's sign. COMMON BILE DUCT: Normal in caliber measuring 0.3 cm in diameter. RIGHT KIDNEY: No hydronephrosis. No renal calculi or focal parenchymal lesions. The kidney measures 11.7 cm in maximum dimension. FREE FLUID: None. US/US abdomen hayden w elastography IMPRESSION: 1. Mild hepatomegaly with diffusely coarsened and increased hepatic echotexture/echogenicity, findings most likely representing a mixture of fatty infiltration and underlying hepatocellular disease. There is a mildly complex appearing 8 mm cyst in the left hepatic lobe. This does not appear suspicious. 2. Liver elastography: Measurements are suggestive of compensated advanced chronic liver disease but need further test for confirmation. This is a quality data set. 3. Normal gallbladder, bile ducts, and right kidney. Laboratory Tests 12/19/24 05/22/25 09:26 09:15 Hemoglobin A1c % 6.5 H Ferritin 241 Total Bilirubin 0.7 Direct Bilirubin 0.3 GGT 92 H AST 46 H ALT 88 H Alkaline Phosphatase 97 Liver Fibrosis Stage F0 TSH 1.30 Assessment & Plan Assessment & Plan (1) Elevated LFTs: Code(s): R79.89 - Other specified abnormal findings of blood chemistry Category: Medical (2) Hepatomegaly: Code(s): R16.0 - Hepatomegaly, not elsewhere classified Category: Medical (3) Liver cyst: Code(s): K76.89 - Other specified diseases of liver Category: Medical Plan Discussed with patient dietary choices. Low-fat, low carb, low-salt and high- protein diet discussed with patient. Also discussed with patient the importance of exercise and weight loss. He will be following up with the dietitian. Patient will repeat liver enzymes and ultrasound in 6 months. We will rule out autoimmune disorders as a cause of his recent increase in liver enzymes. Patient denies having any GI concerning issues. Orders: Orders Smooth Muscle Antibody Today R79.89 - Other specified abnormal findings of blood chemistry US abdomen hayden w elastography 6 Months K76.0 - Fatty (change of) liver, not elsewhere classified Liver Panel 6 Months R74.01 - Elevation of levels of liver transaminase levels Alpha Fetoprotein Today R79.89 - Other specified abnormal findings of blood chemistry C Reactive Protein Today K58.9 - Irritable bowel syndrome, unspecified Ceruloplasmin Today R79.89 - Other specified abnormal findings of blood chemistry Ferritin Today R74.8 - Abnormal levels of other serum enzymes Mitochondrial Antibody Today R79.89 - Other specified abnormal findings of blood chemistry Coding Level of Care Code Est Pt Level 3 (10566) Diagnoses Elevated LFTs R79.89 Hepatomegaly R16.0 Liver cyst K76.89 Time Spent (min) 25 Comment 15 minutes spent with patient and additional 10 minutes spent reviewing his records
[2025-06-12 08:32] VITALS: BP 142/78; PULSE 88; O2SAT 96; BMI 37.3
== END 2025-06-12 08:53 | disposition home or self-care (01) ==
LOC: HO.HGI 08:25
PROVIDERS: PCP Physician Assistant; Visit Provider Nurse Practitioner Family
DX: R79.89 Other specified abnormal findings of blood chemistry (principal); R16.0 Hepatomegaly, not elsewhere classified; K76.89 Other specified diseases of liver
CPT/HCPCS: 99213

== ENCOUNTER 2025-06-26 10:19 | Outpatient (REF) | payer OTHER, SELFPAY ==
[2025-06-26 11:22] LABS: Alanine Aminotransferase 111 U/L (0-40); Albumin Level 5.1 g/dL (3.5-5.0); Alkaline Phosphatase 94 U/L (39-117); Anion Gap 14 (12-20); Aspartate Amino Transferase 63 U/L (5-37); Blood Urea Nitrogen 14 mg/dL (9-16); Calcium 9.5 mg/dL (8.4-10.2); Carbon Dioxide 26 mmol/L (22-29); Chloride 103 mmol/L (96-108); Estimated Glomerular Filt Rate > 60; Potassium 4.1 mmol/L (3.3-5.1); Sodium 139 mmol/L (135-145); Total Protein 8.0 g/dL (6.5-8.0)
[2025-06-26 11:40] LABS: HBS Num1 2.76 mIU/mL (0-7.99); ~Hepatitis B Surface Antibody NONREACTIVE (Nonreactive)
[2025-06-26 11:43] LABS: Microalbum/Creatinine Ratio Ur 18.0 ug/mg cr (<30)
[2025-06-26 12:03] LABS: Ferritin 358 ng/mL (20-250)
[2025-06-27 09:29] LABS: Rubeola IgG (Measles) 105.00 AU/mL
== END 2025-06-26 10:20 | disposition home or self-care (01) ==
LOC: HO.LAB 10:19
PROVIDERS: Absent Provider Nurse Practitioner Family; PCP Physician Assistant; Visit Provider Physician Assistant
DX: Z01.84 Encounter for antibody response examination (principal); Z11.59 Encounter for screening for other viral diseases; I10 Essential (primary) hypertension; E11.9 Type 2 diabetes mellitus without complications; R79.89 Other specified abnormal findings of blood chemistry; R16.0 Hepatomegaly, not elsewhere classified; G47.33 Obstructive sleep apnea (adult) (pediatric); K58.9 Irritable bowel syndrome, unspecified; R74.8 Abnormal levels of other serum enzymes; Z28.39 Other underimmunization status
CPT/HCPCS: 36415; 80053; 82043; 82105; 82390; 82570; 82728; 86015; 86140; 86381; 86706; 86735; 86762; 86765; 86787

== ENCOUNTER 2025-06-29 08:34 | Outpatient (AMB) | payer OTHER, SELFPAY ==
--- NOTE | 2025-06-29 08:40 | A.OFFPC_ITS ---
Vital Signs 06/29/25 08:42 Height 6 ft 1 in Weight 281 lb 8 oz BMI 37.1 BP 120/86 Blood Pressure Location Rt brachial Position Sitting Respiration 16 Pulse 89 Pulse Source Pulse Oximeter Pulse Oximetry (%) 96 Oxygen Delivery Method Room Air Intake Visit Reasons: bp, dm, labs Intake Note: Follow up Allergies Penicillins Allergy (Unknown, Verified 06/29/25 08:49) Unknown Medication List - Last Reconciled 06/29/25 by Zainab Reddy PA-C blood sugar diagnostic (FreeStyle Lite Strips) Use daily As directed to check blood glucose blood-glucose meter (FreeStyle Lite Meter kit) Use daily As directed to check blood sugars cholecalciferol (vitamin D3) 50 mcg PO DAILY 90 days lancets (FreeStyle Lancets) use daily as directed to check blood glucose lisinopril 10 mg PO DAILY Tobacco use date assessed: 06/29/25 Dental Screening Dental Screen Date: 05/25/25 HPI bp, dm, labs HPI Details Patient is a 29-year-old male with a significant past medical history of elevated blood pressure readings, type 2 diabetes, elevated LFTs, obstructive sleep apnea presenting today for a follow up. Pulm: Recently seen and treated for sleep apnea CV: Blood pressure today in the office is 120/86. Currently on lisinopril and tolerating this well. Denies any adverse effects. Was recently started on this. GI: He did get labs which did show elevated LFTs and does endorse a diet high in fats and processed foods. States that his family eats a lot of processed foods because it is just easier to cook. He is trying to make some dietary changes. he did follow with GI. He did have a liver ultrasound which was consistent with hepatomegaly, coarse appearance of the liver and a complex liver cyst which did not appear to be concerning. He did review this with GI in the recommendation is weight loss and controlling his blood sugars. Endo: He is a a newly diagnosed diabetic and his A1c has increased from 5.8- 6.5. It has increased despite him following with a electrical and instrumentation mechanic. He states that he sometimes checks his blood sugars and they are around 120. He has been trying to make diet changes. He has lost 2 lb from his last visit. He says that he is not making significant lifestyle changes just small ones and he is trying to figure out a way to incorporate more physical activity. 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 Current occupational exposures/hazards: No Cognitive needs: No Hearing needs: No Vision needs: Yes (glasses) Questionnaire Thrive Questionnaire Date Thrive assessed: 02/18/25 I am a: Patient What is your living situation today?: I have a steady place to live Within the past 12 months, did the food you bought not last and you didn't have the money to get more?: Never true Within the past 12 months, did you worry whether your food would run out before you got money to buy more?: Never true Do you have trouble paying for medicines?: No Do you have trouble getting transportation to medical appointments?: No Do you have trouble paying your heating and electricity bill?: No Do you have trouble taking care of your child, family member or friend?: No Do you have trouble with day-to-day activities such as bathing, preparing meals, shopping, managing finances, etc.?: No Are you currently unemployed and looking for a job?: No Are you interested in more education?: Yes Please select the resources that you would like help with: None Currently or been in a relationship where the following occur: No concerns reported THRIVE Score: 0 AUDIT C Alcohol Use Questionnaire (AUDIT-C) 1. How often do you have a drink containing alcohol?: Monthly or less 2. How many drinks containing alcohol do you have on a typical day when you are drinking?: 1 or 2 3. How often do you have six or more drinks on one occasion?: Never Total Score: 1 JESUS ALBERTO-7 AMB Questionnaire JESUS ALBERTO-7 Date JESUS ALBERTO - 7 assessed: 10/19/24 Source: Developed by Drs. Donn Purdy, Kristina Alonso, Rebel Burrell and colleagues, with an educational yulissa from [employer]. Physical exam (Primary Care) Vital Signs: Last Vital Signs Pulse 89 06/29/25 08:42 Resp 16 06/29/25 08:42 BP 120/86 06/29/25 08:42 Pulse Ox 96 06/29/25 08:42 Oxygen Delivery Method Room Air 06/29/25 08:42 BMI result Body Mass Index 37.1 Tobacco/Smoking Status: Tobacco use Status Tobacco use date assessed 06/29/25 06/29/25 08:42 Patient Tobacco Use Status Never used Tobacco 06/29/25 08:50 e-Cigarette/Vaping Use Never Used 06/29/25 08:50 Thrive Assessment: Date of Thrive Assessment Date Thrive assessed 02/18/25 06/29/25 08:42 Currently or been in a relationship where the following occur: No concerns reported Const Orientation/consciousness: patient oriented x3 HENMT Ears: hearing grossly normal bilaterally Neck Thyroid: Thyroid normal Lymphatic: no lymphadenopathy noted Resp Auscultation: clear to auscultation bilaterally Cardio Rate: regular rate Rhythm: regular rhythm Heart sounds: S1 normal heart sound present and S2 normal heart sound present GI Inspection: Yes normal to inspection Palpation (GI): Soft to palpation and Other GI palpation findings present (nontender, no cva tenderness) Auscultation: normoactive bowel sounds Rectal Exam - Male: Yes deferred Skin General skin exam: no rashes or lesions noted Neuro General: patient oriented x3, gait normal and no focal motor deficits Results Reviewed Results Reviewed: Laboratory Tests 05/22/25 06/26/25 09:15 10:32 WBC 8.5 RBC 5.80 Hgb 15.8 Hct 48.4 Plt Count 273 Sodium 139 Potassium 4.1 Chloride 103 Carbon Dioxide 26 Anion Gap 14 BUN 14 Creatinine 0.75 Estimated GFR > 60 Fasting Glucose 123 H Hemoglobin A1c % 6.5 H AST 46 H 63 H ALT 88 H 111 H Coding Level of Care Code Est Pt Level 4 (25132) Complex EM visit Add On G2211 Diagnoses Hypertension, unspecified type I10 Hypertension type: unspecified Elevated LFTs R79.89 Controlled type 2 diabetes mellitus without complication, without long-term current use of insulin E11.9 Assessment & Plan Assessment & Plan (1) HTN (hypertension): Code(s): I10 - Essential (primary) hypertension Category: Medical Qualifiers: Hypertension type: unspecified Qualified Code(s): I10 - Essential (primary) hypertension Plan: Continue current regimen (2) Elevated LFTs: Code(s): R79.89 - Other specified abnormal findings of blood chemistry Category: Medical Plan: He has a diet for fatty liver that he is trying to follow (3) Controlled type 2 diabetes mellitus without complication, without long-term current use of insulin: Code(s): E11.9 - Type 2 diabetes mellitus without complications Category: Medical Plan: I will start him on metformin. We discussed risks and benefits and adverse effects of this medication. I have ordered labs to be rechecked in 3 months. I have also encouraged him to download my fitness pal to track his intake. We discussed what it calorie deficit means. He will follow up with the time or erica ner if needed. Patient understands and agrees with this plan. Orders: Orders Hemoglobin A1c Today E11.9 - Type 2 diabetes mellitus without complications, I10 - Essential (primary) hypertension, R73.01 - Impaired fasting glucose, R79.89 - Other specified abnormal findings of blood chemistry Complete Blood Count Auto Diff Today E11.9 - Type 2 diabetes mellitus without complications, I10 - Essential (primary) hypertension, R79.89 - Other specified abnormal findings of blood chemistry Comprehensive [place]. Panel Fast Today E11.9 - Type 2 diabetes mellitus without complications, I10 - Essential (primary) hypertension, R79.89 - Other specified abnormal findings of blood chemistry Microalbumin, Random (w Creat) Today E11.9 - Type 2 diabetes mellitus without complications, I10 - Essential (primary) hypertension, R79.89 - Other specified abnormal findings of blood chemistry Medications: New metformin ER (Glucophage XR) 500 mg PO QPM 90 tabs 0RF
[2025-06-29 08:42] VITALS: BP 120/86; PULSE 89; RESP 16; O2SAT 96; BMI 37.1
== END 2025-06-29 09:16 | disposition home or self-care (01) ==
LOC: HO.HMCFM 08:35
PROVIDERS: PCP Physician Assistant; Visit Provider Physician Assistant
DX: I10 Essential (primary) hypertension (principal); R79.89 Other specified abnormal findings of blood chemistry; E11.9 Type 2 diabetes mellitus without complications

== ENCOUNTER 2025-07-31 09:05 | Outpatient (AMB) | payer OTHER, SELFPAY ==
[2025-07-31 09:14] VITALS: BMI 36.7
--- NOTE | 2025-07-31 09:14 | A.OFFVIS_ITS ---
VS Expanded 07/31/25 09:14 Height 6 ft 1 in Weight 278 lb 0.046 oz BMI 36.7 Intake Visit Reasons: Pre DM Allergies Penicillins Allergy (Unknown, Verified 06/29/25 08:49) Unknown Nutrition Presentation Details: Pt presents or MNT f/u for T2DM Pt reports working on choosing fiber rich foods. Admits to intake of highly processed snacks /foods. Has multiple questions regarding macros today Physical activity- sedentary BS Monitoring Most Recent Diabetes Results: Microalb/Creat Ratio, (<30) 18.0 ug/mg cr 06/26/25 Cholesterol, (<200) 175 mg/dL 05/22/25 HDL Cholesterol, (>40) 36 mg/dL L 05/22/25 Triglycerides, (<150) 181 mg/dL H 05/22/25 Creatinine, (0.5-1.4) 0.75 mg/dL 06/26/25 BUN, (9-16) 14 mg/dL 06/26/25 Sodium, (135-145) 139 mmol/L 06/26/25 Potassium, (3.3-5.1) 4.1 mmol/L 06/26/25 Chloride, (96-108) 103 mmol/L 06/26/25 Carbon Dioxide, (22-29) 26 mmol/L 06/26/25 Calcium, (8.4-10.2) 9.5 mg/dL 06/26/25 AST, (5-37) 63 U/L H 06/26/25 ALT, (0-40) 111 U/L H 06/26/25 Total Protein, (6.5-8.0) 8.0 g/dL 06/26/25 Albumin, (3.5-5.0) 5.1 g/dL H 06/26/25 [facility] Medical History Hepatomegaly Social History (Updated 06/29/25 @ 08:50 by Maria G Villafuerte CMA) Housing: House Alcohol intake: current Comment: Socially Patient Tobacco Use Status: Never used Tobacco e-Cigarette/Vaping Use: Never Used Second Hand Smoke Exposure: Yes service: No Current occupational status: employed 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 Current occupational exposures/hazards: No Cognitive needs: No Hearing needs: No Vision needs: Yes (glasses) Assessment & Plan Assessment & Plan (1) Prediabetes: Code(s): R73.03 - Prediabetes Category: Medical Plan: Wt: 129 Kg ( 03/17 ), 127 kg (05/17), 126 kg(08/17) Est kcal needs as per MSJ: 2800 (40% carb, 30% protein/fat) Est fluid needs as per 25-30 ml/d: 3800 Est prot per day as per 1 g/kg bw: 130 Recommend fiber intake : 8-10 g per day and gradually increase to 25-28 g per day for women and 35-38 g for men or as tolerated Recommend sodium intake per day : less than 2000 mg Educated patient on: ( R = reviewed V = verbalizes understanding N/R = needs review N/A = not applicable * Food sources of carbohydrate, adequate serving sizes and its role in various health conditions: R * Differences between complex carbohydrates a simple carbohydrates, role of fiber in diet: R * Lean protein sources of foods: R * hydration: R * Differences between types of fats and role in diet (mono on saturated fat fatty acids, saturated fatty acids, trans fats): R * Food sources of sodium in salt and healthy modifications for heart health in kidney health: R * Vitamins and minerals: R V N/R * Healthy plate method concept: R V * Physical activity: Benefits a precaution: R * Hypoglycemia protocol (rule of 15): R V N/R * Dietary prevention of Hyperglycemia: R * Relationship of foods(sugars/fats/low fiber intake/blood glucose and fatty liver discussed Patient Instructions: Choose foods low in saturated fats (avocado, nuts, legumes) Have one meal replacement per day Consider incorporating 30 -40 minutes physical activity 3 times a week Coding Level of Care Code Nutr Indiv Subseq (62512) Diagnoses Prediabetes R73.03 Time Spent (min) 30
== END 2025-07-31 09:51 | disposition home or self-care (01) ==
LOC: HO.ENCR 09:06
PROVIDERS: PCP Physician Assistant; Visit Provider Dietitian, Registered
DX: R73.03 Prediabetes (principal)

== ENCOUNTER → 2025-07-31 09:05 | Outpatient (BNVA) | payer OTHER, SELFPAY | PROVIDERS: PCP Physician Assistant; Visit Provider Dietitian, Registered | DX: R73.03 Prediabetes (principal) | CPT/HCPCS: 97803 ==

== ENCOUNTER 2025-09-19 08:47 | Outpatient (AMB) | payer OTHER, SELFPAY ==
[2025-09-19 08:53] VITALS: BP 120/82; PULSE 92; O2SAT 96; BMI 37.2
--- NOTE | 2025-09-19 08:53 | A.OFFVIS_ITS ---
Vital Signs 09/19/25 08:53 Height 6 ft 1 in Weight 282 lb BMI 37.2 BP 120/82 Blood Pressure Location Lt brachial Position Sitting Pulse 92 Pulse Source Pulse Oximeter Pulse Oximetry (%) 96 Oxygen Delivery Method Room Air Intake Visit Reasons: 6 mo follow up Intake Note: Patient presents follow up GOMEZ. Compliance in chart(88/90days, >=4hrs- 98%, Average Usage- 6hr 31min, Med Pressure-12.3, Med Leaks- 7.4, AHI-2.3). Accompanied by: Self / Same As Patient Allergies Penicillins Allergy (Unknown, Verified 09/19/25 08:57) Unknown HPI Comments Details: 29 year old male presents for sleep evaluation per PCP, Elenita Reddy. GOMEZ Compliance Report Reviewed with pt 05/2025 to 08/2025 Total use is 88/90 days and >4 hours is 98% Avg use is 6hours and 31 min Press are 12.3 and Med Leaks are 7.4 AHI is 2.3 He washes his mask, rinses hoses, changes filters and fills reservoir with water. He was evaluated by the dentist recently and has invisalign liners due to an over bite. He says he has been having alot of leaks since. The pressures are choking him and feels a gush of air when he takes a breath in, and this only happens when he wakes up in the middle of the night, not when he is falling asleeping initially. 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 He denies grinding his teeth at night, and is not so sluggish to wake up, but still needs a few minutes to get out of bed.He is training himself to be a side sleeper and nose breather due to leaks with the face mask, he would like to try the nose pillows. He denies memory issues, is forgetfulness when he multi-tasks and notices he is easily distracted. He denies depression, or mood fluctuations, but has mild anxiety especially when unable to get enough air into his airway. He denies any parasomnias, sleep talking, walking, abnormal movements at night, and denies RLS symptoms. 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 Current occupational exposures/hazards: No Cognitive needs: No Hearing needs: No Vision needs: Yes (glasses) Physical Exam Vital Signs: Last Vital Signs Pulse 92 09/19/25 08:53 BP 120/82 09/19/25 08:53 Pulse Ox 96 09/19/25 08:53 Oxygen Delivery Method Room Air 09/19/25 08:53 BMI result Body Mass Index 37.2 Const General: cooperative, comfortable and no acute distress Nutritional Appearance: average body habitus and overweight (BMI is 37) Orientation/consciousness: patient oriented x3 HEENT Face and sinus: Yes normal facial exam and Yes face symmetric Throat: Yes other ([place] score of 3) Eyes Pupils: Equal, round and reactive pupils present Neck Neck: Yes full ROM and Yes supple Resp Effort & Inspection: normal respiratory effort and able to speak in complete sentences Neuro General: patient oriented x3 and moves all extremities Cranial nerves: Yes CN's II-XII intact bilaterally, Yes Facial sensation intact/muscles of mastication intact, Yes Equal, round and reactive pupils present, Yes Normal accommodation reflex present, Yes Bilaterally intact EOM present, Yes Nystagmus not present, Yes Normal facial strength present, Yes Midline tongue present, Yes Ability to bilaterally rotate head present and Yes Ability to bilaterally elevate shoulders present Cognition (Neuro): normal cognition Gait exam (Neuro): Normal gait present Motor exam (neuro): 5/5 motor strength present throughout, Pronator motor function not present, no tremor noted and Normal motor muscle tone present throughout Results Reviewed Results Reviewed: GOMEZ Compliance Report Reviewed with pt 05/2025 to 08/2025 Total use is 88/90 days and >4 hours is 98% Avg use is 6hours and 31 min Press are 12.3 and Med Leaks are 7.4 AHI is 2.3 He washes his mask, rinses hoses, changes filters and fills reservoir with water Assessment & Plan Assessment & Plan (1) GOMEZ on CPAP: Code(s): G47.33 - Obstructive sleep apnea (adult) (pediatric); Z99.89 - Dependence on other enabling machines and devices Category: Medical (2) Fatigue due to sleep pattern disturbance: Code(s): R53.83 - Other fatigue; G47.9 - Sleep disorder, unspecified Category: Medical (3) Low vitamin D level: Code(s): R79.89 - Other specified abnormal findings of blood chemistry Category: Medical (4) Obese body habitus: Code(s): E66.9 - Obesity, unspecified Category: Medical (5) Chronic fatigue: Code(s): R53.82 - Chronic fatigue, unspecified Category: Medical (6) Elevated LFTs: Code(s): R79.89 - Other specified abnormal findings of blood chemistry Category: Medical Plan GOMEZ on cpap therapy needs titration due to increased leaks. Mask fitting for nose pillows. Chronic fatigue with elevated LFTs will review labs, as Ferritin is elevated, history of genetic dispostion.Alpha Feto protein - (Liver cirrhosis) Nose pillows and mask fitting. RX to [facility] is written. Obesity continue to f/u with weight management. Labs reviewed with pt. Orders: Orders RT PSG in-lab sleep titration Today G47.33 - Obstructive sleep apnea (adult) (pediatric) Methylmalonic Acid Today G47.9 - Sleep disorder, unspecified, R53.82 - Chronic fatigue, unspecified, R53.83 - Other fatigue, R79.89 - Other specified abnormal findings of blood chemistry IRON PROFILE Today G47.9 - Sleep disorder, unspecified, R53.82 - Chronic fatigue, unspecified, R53.83 - Other fatigue, R79.89 - Other specified abnormal findings of blood chemistry Homocysteine Today G47.9 - Sleep disorder, unspecified, R53.82 - Chronic fatigue, unspecified, R53.83 - Other fatigue, R79.89 - Other specified abnormal findings of blood chemistry Vitamin D 25-OH Total Today R53.82 - Chronic fatigue, unspecified, R79.89 - Other specified abnormal findings of blood chemistry TSH reflex Free T4 Today R53.82 - Chronic fatigue, unspecified, R79.89 - Other specified abnormal findings of blood chemistry Magnesium Today R53.82 - Chronic fatigue, unspecified, R79.89 - Other specified abnormal findings of blood chemistry Vitamin B12 and Folate Today R53.82 - Chronic fatigue, unspecified, R79.89 - Other specified abnormal findings of blood chemistry Parathyroid Hormone Intact Today R53.82 - Chronic fatigue, unspecified, R79.89 - Other specified abnormal findings of blood chemistry Medications: Refilled cholecalciferol (vitamin D3) take one capsule daily by mouth. 50 mcg PO DAILY 90 caps 3RF vitamin d deficiency 90 days Patient Instructions: Sleep Hygiene provided: set a scheduled bedtime and wake time to help regulate the circadian rhythm and balance the release of pituitary hormones. Sleep in a dark room, temperatures below 68 degrees, and no devices n bed. Limit caffeinated products 6 hours prior to bed, and limit fluids 2-4 hours prior to bed. Gentle night yoga, diffusing essential oils, and playing soft music can be relaxing. Coding Level of Care Code Est Pt Level 4 (66784) Diagnoses GOMEZ on CPAP G47.33; Z99.89 Fatigue due to sleep pattern disturbance R53.83; G47.9 Low vitamin D level R79.89 Obese body habitus E66.9 Chronic fatigue R53.82 Elevated LFTs R79.89
== END 2025-09-19 09:35 | disposition home or self-care (01) ==
LOC: HO.HSMS 08:48
PROVIDERS: PCP Physician Assistant; Visit Provider Physician Assistant Medical
DX: G47.33 Obstructive sleep apnea (adult) (pediatric) (principal); Z99.89 Dependence on other enabling machines and devices; R53.83 Other fatigue; G47.9 Sleep disorder, unspecified; R79.89 Other specified abnormal findings of blood chemistry; E66.9 Obesity, unspecified; R53.82 Chronic fatigue, unspecified
CPT/HCPCS: 99214

== ENCOUNTER → 2025-11-12 19:30 | Outpatient (REF) | payer OTHER, SELFPAY | LOC: HO.SL 19:30 | PROVIDERS: PCP Physician Assistant; Visit Provider Physician Assistant Medical | DX: G47.33 Obstructive sleep apnea (adult) (pediatric) (principal) | CPT/HCPCS: 95811 ==

== ENCOUNTER → 2025-11-12 22:44 | Outpatient (BNV) | payer OTHER, SELFPAY | PROVIDERS: PCP Physician Assistant; Visit Provider Psychiatry & Neurology Neurology | DX: G47.33 Obstructive sleep apnea (adult) (pediatric) (principal) | CPT/HCPCS: 95811 ==